=== PATIENT | female | born 1985 | race Caucasian/White ===

== ENCOUNTER 2022-10-03 13:11 | Emergency (ER) | payer OTHER, SELFPAY ==
[2022-10-03 13:28] VITALS: BP 120/68; PULSE 89; RESP 20; TEMP 37.2; O2SAT 100; BMI 19.3
--- NOTE | 2022-10-03 14:20 | CM.SWNOTE ---
[facility] [place] [facility] [place] [employer] [place] Start: 10/03/22 14:11 Freq: Status: Active Protocol: Document 10/03/22 14:11 TM (Rec: 10/03/22 14:20 TM [id number]) RADIOLOGIC TECHNOLOGIST CHIEF/Assembler Watch Train Assessment Time Spent with Patient Start date 10/03/22 Visit Start Time 13:40 End date 10/03/22 Visit End Time 14:11 Mental Health Screening Include Onset, Duration, Intensity Presenting Problem Pt presents with significant other who brought her in following suicidal statements made via text message. Precipitating Event(s) Pt is relatively unresponsive, and often staring off into space during interview. Per SO , pt has missed work for 1 week and has been in bed most of the time. Pt reports lack of appetite and is sleeping more than usual. Pt reports that she does not like Daniel and states, My kids are annoying and spoiled. I don't like theri father, I don 't want to be around him and he is there all the time. Current Behavioral Health Provider(s) Pt denies current BH treatment Include Facility, Provider, Ph. # /providers. Psych. Hx Mental Health and Chemical Pt was previously on Dependency antidepressent approximately 12 years ago during . Pt cannot remember how long she took medication or why she stopped. Pt cannot remember which medication she was prescribed. Pt denies substance use and SO corrorborates. Family Hx of Behavioral Abuse Pt reports that her aunts have mental illness diagnoses but denies family history of suicide. Pt endorses past history of trauma and became tearful when SW pressed. Pt did not go into detail regarding trauma reporting, It's been a long time. I'm over it. Psychiatric Hospitalizations (date(s)/ Pt denies. location) Psychosocial information & Support Pt's SO David is with her in Systems room. 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 Legal Concerns Legal Matters - Outstanding Issues Pt denies. Mental Status Orientation (Person/Place/Time) Pt is oriented to person, place, and time. Stated Mood I feel like shit. I just want to go to sleep. Affect (Congruent with Mood?) Broad. Thought Content - Specify/Describe denies AH or VH. Obsessions, Delusions, Hallucinations Thought Processes (Asdatlq-Gpfzaddd-Habx logical. Fnwhsqkh-Ncnazsbn-Mcevssdtpv- Sfqabyfjnijjhv-Dmrcmzv-Qgwxucvljbyk- Thought Blocking) Speech (Nywinq-Icrf-Lnwaagp-Rapid-Soft- slow, soft. Loud-Pressured) Motor (Cvvvai-Joesbjrkp-Nbvd-Other) slow. Insight (Ejrr-Potl-Rqjg/Limited) Poor - pt unable to articulate feelings, mood, or things that might improve current situation. Judgement (Ojbo-Ptph-Ynhz/Limited) Fair. Impulse Control (Adequate-Impaired) not tested. Memory (Inqvzyfnl-Pxctnm-Aenprv, intact. Impaired-Intact) Concentration (Intact-Impaired) impaired. Pt appears to space out during conversation and does not appear to be tracking appropriately. Attention (Intact-Impaired) impaired. Behavior (Appropriate-Inappropriate) appropriate. Risk Assessment Suicidal Ideation (Plan) No: Pt denies, although she is saying she just wants to stay in bed and sleep. Homicidal Ideation (Plan) No Intervention Intervention SW met with pt and her SO, David, per pt request. Pt did not readily participate in interview and often had to be prompted several times to answer question. Pt appears withdrawn and often staring into space. Pt tearful at times during interview. Pt not displaying great insight into current situation. Pt reports that she does not want voluntary hospitalization. SW discusses process for inpatient referral, outpatient , and intensive outpatient treatment. SW discusses process of DCR evaluation and potential involuntary detainment. SW discusses with ED provider, who agrees to meet with pt and SW to assess. Plan RA Plan ED Provider and SW will meet with patient to assess and decide how to move forward. CHICO Carreon
--- NOTE | 2022-10-03 15:47 | CM.SWNOTE ---
Addendum entered by CHICO Carreon 10/03/22 19:41: SW called [facility] and they confirmed that they received the fax and are currently reviewing the referral. They still have available beds. RICARDO called [facility] and left a voicemail requesting a call back to confirm that they received and are reviewing referral. RICARDO called [facility] and confirmed that they received the referral. They reported that they have been inundated with detox referrals but still have bed availability and will review and get back to SW as soon as possible. CHICO Carreon Addendum entered by CHICO Carreon 10/03/22 16:43: Pt asked to see RICARDO. RICARDO met pt and SO at bedside and pt tearfully stated that she would prefer to go voluntarily to [facility]. RICARDO explained that pt would not be able to have her cell phone at hospital and pt agreed. RICARDO will look for voluntary beds. RICARDO called [facility] and they do have beds available. SW will fax referral to [facility] once pt is medically cleared. SW called [facility] and screened pt. They do not believe that pt will meet acuity of their unit and are happy to provide IOP resources. RICARDO called [facility] and they have 1 lower acuity bed available. SW will fax referral once pt is medically cleared. RICARDO called [facility] and they have beds available. RICARDO will fax referral when pt is medically cleared. CHICO Carreon Original Note: ED SW Note Pt is 37 year old female who presents with SO for suicidal ideation. RICARDO asked pt's permission to talk with her mother who is in the waiting room and pt agreed. RICARDO met pt's mother, Deepika in [facility] to discuss pt's recent history. Deepika reports that pt has a lot of psychosocial stressors including a divorce and a relationship with a man that is also currently . Deepika reports that pt is caring for her kids but just barely. Deepika reports that pt has been withdrawn for the last few weeks and has not attended family events that she normally would attend. Per Deepika, pt has been sleeping and in catatonic state for weeks. Deepika reports that pt met with a family friend Mercy for dinner last Wednesday and made suicidal comments at that time. Pt has also made suicidal gestures/comments to her estranged , Rachael. Pt has told Rachael that he and her children would be fine without her. Pt has missed work the last week and generally stays in bed all day. When SW questions patient about suicidal statements she reports that she does not remember making them. Pt's erratic behavior includes quitting her second job last week. Per pt's mother, pt has become very thin and eats sporadically. Pt historically has very close relationship with her mother but has not been responding to her texts and refuses to see her today in hospital. SW and pt's SO David meet pt again in room and explain difference between voluntary and involuntary treatment. Pt continues to decline voluntary treatment. Plan: RICARDO discusses with ED provider, who agrees that DCR needs to evaluate. Once pt is medically clear, SW will call DCR for evaluation. CHICO Carreon
[2022-10-03 16:30] LABS: Add Manual Diff / Slide Review NO; Basophils Absolute Auto 0 /uL (0-100); Basophils Percent Auto 0.5 % (0-2); Eosinophils Absolute Auto 0 /uL (0-450); Eosinophils Percent Auto 0.5 % (2-4); Hematocrit 35.2 % (36-46); Hemoglobin 10.9 g/dL (12.0-16.0); Lymphocytes Absolute Auto 1300 /uL (1100-4500); Lymphocytes Percent Auto 22.6 % (25-40); Mean Corpuscular HGB Conc 30.8 % (30-36); Mean Corpuscular Hemoglobin 20.7 PG (26-34); Mean Corpuscular Volume 67.1 fL (80-100); Monocytes Absolute Auto 300 /uL (0-900); Monocytes Percent Auto 4.8 % (3-14); Neutrophils Absolute Auto 4300 /uL (1500-7000); Neutrophils Percent Auto 71.6 % (50-75); Platelet Count 379 X10^3/uL (150-400); Red Blood Cell Count 5.25 X10^6/uL (4.0-5.2); Red Cell Distribution Width 19.1 % (11.6-14.8)
[2022-10-03 16:32] LABS: Alanine Aminotransferase 12 IU/L (<35); Albumin 4.4 g/dL (3.5-5.0); Albumin Globulin Ratio 1.3 (1.0-2.8); Alkaline Phosphatase 54 U/L (38-126); Aspartate Aminotransferase 19 IU/L (14-36); BUN Creatinine Ratio 10.9 (6-22); Bilirubin Total 1.8 mg/dL (0.2-1.3); Blood Urea Nitrogen 10 mg/dL (7-17); Calcium 9.6 mg/dL (8.4-10.2); Carbon Dioxide 24 mmol/L (22-32); Chloride 102 mmol/L (98-107); Estimated Glomerular Filt Rate > 60 mL/min (>60); Ethanol (ETOH) < 10 mg/dL; Globulin 3.3 g/dL (1.7-4.1); Glucose 88 mg/dL (70-100); HEMOLYSIS < 15 (0-50); Potassium 4.2 mmol/L (3.4-5.1); Sodium 135 mmol/L (137-145); Total Protein 7.7 g/dL (6.3-8.2)
[2022-10-03] MEDS: ACETAMINOPHEN 325 MG TABLET 650 MG PO (16:36)
[2022-10-03 16:59] LABS: COVID19 -Nasal RAPID Negative (Negative)
[2022-10-03 17:02] LABS: Thyroid Stimulating Hormone 0.324 uIU/mL (0.47-4.68)
[2022-10-03 17:28] LABS: Hypochromasia 1+; Microcytosis 1+
[2022-10-03 17:29] LABS: Platelet Estimate Adequate on smear
[2022-10-03 17:50] LABS: UR Morphine/Opiate cutoff 300 Negative (Negative); Ur Creatinine Normal (Normal); Ur Specific Gravity Normal (Normal); Urine Amphetamines Negative (Negative); Urine Barbiturates Negative (Negative); Urine Benzodiazepines Negative (Negative); Urine Cocaine Negative (Negative); Urine MDMA Negative (Negative); Urine Methadone Negative (Negative); Urine Methamphetamines Negative (Negative); Urine Oxycodone Negative (Negative); Urine Phencyclidine Negative (Negative); Urine Tetrahydrocannabinol Positive (Negative); Urine Tricyclic Antidepressant Negative (Negative); Urine pH Normal (Normal)
[2022-10-03 17:51] LABS: Appearance Urine UA CLOUDY; Bilirubin Urine UA NEGATIVE (NEGATIVE); Color Urine UA YELLOW; Glucose Urine UA NEGATIVE (Negative); Ketones Urine UA 1+ (NEGATIVE); Leukocyte Esterase Urine UA 2+ (NEGATIVE); Nitrite Urine UA NEGATIVE (Negative); Occult Blood Urine UA 3+ (Negative); Pregnancy Test Urine Negative (Negative); Protein Urine UA 2+ (Negative); Specific Gravity Urine UA 1.025 (1.000-1.035); Urobilinogen Urine UA 0.2 E.U./dL (0.2)
[2022-10-03 18:20] LABS: Bacteria Urine Moderate (10-30); Culture Indicated Urine Specimen Cultured; RBC Urine 10-30/HPF (0-5/HPF); WBC Urine >100/HPF (0-5/HPF)
--- NOTE | 2022-10-03 18:33 | ED_ITS ---
HPI - Psych <Shanika Garcia DO - Last Filed: 10/06/22 08:06> General Chief Complaint: Psychiatric Symptoms Stated Complaint: SI Time Seen by Provider: 10/03/22 15:19 Source: patient Mode of arrival: Ambulatory History of Present Illness HPI Narrative: Patient is a 37-year-old healthy female who presents with suicidal ideations and depression. She is here with both boyfriend and mother. Patient says that she has been sleeping for number of weeks. She is no motivation to get up and out of bed. All she wants do a sleep. She has sent her boyfriend some text messages in regards to not waking up. She is no specific plan of suicidal thoughts. 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 The she has 3 children not able to care for them currently. She feels like she is supported by both her mother and her boyfriend. She really is not able to participate in daily living activities. Related Data Allergies Allergy/AdvReac Type Severity Reaction Status Date / Time No Known Drug Allergies Allergy Unknown Verified 10/03/22 13:28 [NO KNOWN DRUG ALLERGIES] Patient History <Shanika Garcia DO - Last Filed: 10/06/22 08:06> Social History Smoking Status: Never smoker Smoking Status: Never smoker Substance Use Type: does not use Exam <Shanika Garcia DO - Last Filed: 10/06/22 08:06> Initial Vital Signs Initial Vital Signs: Vital Signs Temperature 98.9 F 10/03/22 13:28 Pulse Rate 89 10/03/22 13:28 Respiratory Rate 20 10/03/22 13:28 Blood Pressure 120/68 10/03/22 13:28 Pulse Oximetry 100 10/03/22 13:28 Oxygen Delivery Method 10/03/22 13:28 GENERAL: Curled up in position staring off into space very tearful. She actually does have some makeup on. CARDIOVASCULAR: peripheral pulses in tact, cap refill <2 sec RESPIRATORY: No respiratory distress, speaks in full sentences without difficulty EXTREMITIES: Normal range of motion, no clubbing or edema. Neurovascularly intact NEUROLOGICAL: Cranial nerves II through XII grossly intact. Normal gait and speech. SKIN: Warm, dry, no petechiae, no rashes or lesions. <DO Shamika Manjarrez Last Filed: 10/04/22 06:18> Initial Vital Signs Initial Vital Signs: Vital Signs Temperature 98.9 F 10/03/22 13:28 Pulse Rate 89 10/03/22 13:28 Respiratory Rate 20 10/03/22 13:28 Blood Pressure 120/68 10/03/22 13:28 Pulse Oximetry 100 10/03/22 13:28 Oxygen Delivery Method 10/03/22 13:28 <Brian Olguin DO - Last Filed: 10/05/22 17:42> Initial Vital Signs Initial Vital Signs: Vital Signs Temperature 98.9 F 10/03/22 13:28 Pulse Rate 89 10/03/22 13:28 Respiratory Rate 20 10/03/22 13:28 Blood Pressure 120/68 10/03/22 13:28 Pulse Oximetry 100 10/03/22 13:28 Oxygen Delivery Method 10/03/22 13:28 Course <Shanika Garcia DO - Last Filed: 10/06/22 08:06> Orders Ordered: Discontinued Medications Acetaminophen (Acetaminophen 325 Mg Tablet) 650 mg PO NOW ONE Stop: 10/03/22 16:32 Last Admin: 10/03/22 16:36 Dose: 650 mg Documented By: MARIAM Cephalexin HCl (Cephalexin 250 Mg Capsule) 500 mg PO NOW ONE Stop: 10/04/22 18:15 Last Admin: 10/04/22 18:55 Dose: 500 mg Documented By: LIA Vital Signs Vital signs: Vital Signs - 8 hr 10/04/22 18:40 Pulse Rate 60 Blood Pressure 111/57 L Pulse Oximetry 100 Oxygen Delivery Method Room Air <Huan Shi DO - Last Filed: 10/04/22 06:18> Orders Ordered: Discontinued Medications Acetaminophen (Acetaminophen 325 Mg Tablet) 650 mg PO NOW ONE Stop: 10/03/22 16:32 Last Admin: 10/03/22 16:36 Dose: 650 mg Documented By: MARIAM Cephalexin HCl (Cephalexin 250 Mg Capsule) 500 mg PO NOW ONE Stop: 10/04/22 18:15 Last Admin: 10/04/22 18:55 Dose: 500 mg Documented By: ILA Vital Signs Vital signs: Vital Signs - 8 hr 10/04/22 18:40 Pulse Rate 60 Blood Pressure 111/57 L Pulse Oximetry 100 Oxygen Delivery Method Room Air <Brian Olguin DO - Last Filed: 10/05/22 17:42> Orders Ordered: Discontinued Medications Acetaminophen (Acetaminophen 325 Mg Tablet) 650 mg PO NOW ONE Stop: 10/03/22 16:32 Last Admin: 10/03/22 16:36 Dose: 650 mg Documented By: MARIAM Cephalexin HCl (Cephalexin 250 Mg Capsule) 500 mg PO NOW ONE Stop: 10/04/22 18:15 Last Admin: 10/04/22 18:55 Dose: 500 mg Documented By: LIA Vital Signs Vital signs: Vital Signs - 8 hr 10/04/22 18:40 Pulse Rate 60 Blood Pressure 111/57 L Pulse Oximetry 100 Oxygen Delivery Method Room Air MDM - Psych <Shanika Garcia DO - Last Filed: 10/06/22 08:06> Lab Data Result diagrams: 10/03/22 16:00 10/03/22 16:00 Labs: Lab Results 10/03/22 10/03/22 10/03/22 Range/Units 16:00 16:00 16:00 WBC 6.0 (4.5-11.0) X10^3/uL RBC 5.25 H (4.0-5.2) X10^6/uL Hgb 10.9 L (12.0-16.0) g/dL Hct 35.2 L (36-46) % MCV 67.1 L (80-100) fL MCH 20.7 L (26-34) PG MCHC 30.8 (30-36) % RDW 19.1 H (11.6-14.8) % Plt Count 379 (150-400) X10^3/uL Neut % (Auto) 71.6 (50-75) % Lymph % (Auto) 22.6 L (25-40) % [place] % (Auto) 4.8 (3-14) % Eos % (Auto) 0.5 L (2-4) % Baso % (Auto) 0.5 (0-2) % Neut # (Auto) 4300 (6124-5112) /uL Lymph # (Auto) 1300 (0182-1535) /uL [place] # (Auto) 300 (0-900) /uL Eos # (Auto) 0 (0-450) /uL Baso # (Auto) 0 (0-100) /uL Platelet Estimate Adequate on smear RBC Morphology See below Hypochromasia 1+ H Microcytosis 1+ H Sodium 135 L (137-145) mmol/L Potassium 4.2 (3.4-5.1) mmol/L Chloride 102 (98-107) mmol/L Carbon Dioxide 24 (22-32) mmol/L BUN 10 (7-17) mg/dL Creatinine 0.92 (0.52-1.04) mg/dL Estimated GFR > 60 (>60) mL/min BUN/Creatinine Ratio 10.9 (6-22) Glucose 88 (70-100) mg/dL Calcium 9.6 (8.4-10.2) mg/dL Magnesium (1.6-2.3) mg/dL Total Bilirubin 1.8 H (0.2-1.3) mg/dL AST 19 (14-36) IU/L ALT 12 (<35) IU/L Alkaline Phosphatase 54 (38-126) U/L Total Creatine Kinase (30-135) U/L CK-MB (CK-2) CK-MB (CK-2) Rel Index Total Protein 7.7 (6.3-8.2) g/dL Albumin 4.4 (3.5-5.0) g/dL Globulin 3.3 (1.7-4.1) g/dL Albumin/Globulin Ratio 1.3 (1.0-2.8) TSH 0.324 L (0.47-4.68) uIU/mL Urine Color Urine Appearance Urine pH (4.5-8.0) Ur Specific [place] (1.000-1.035) Urine Protein (Negative) Urine Glucose (UA) (Negative) g/dL Urine Ketones (NEGATIVE) Urine Occult Blood (Negative) Urine Nitrate (Negative) Urine Bilirubin (NEGATIVE) Urine Urobilinogen (0.2) E.U./dL Ur Leukocyte Esterase (NEGATIVE) Urine RBC (0-5/HPF) Urine WBC (0-5/HPF) Urine Bacteria (None) Ur Culture Indicated? Urine Test (Negative) U Opiates 300ng/mL cut (Negative) Ur Oxycodone Screen (Negative) Urine Methadone Screen (Negative) Ur Barbiturates Screen (Negative) U Tricyclic Antidepress (Negative) Ur Phencyclidine Scrn (Negative) Ur Amphetamines Screen (Negative) U Methamphetamines Scrn (Negative) Ur MDMA Scrn (Ecstasy) (Negative) U Benzodiazepines Scrn (Negative) Urine Cocaine Screen (Negative) U Marijuana (THC) Screen (Negative) Ethyl Alcohol < 10 ( - 10) mg/dL SARS-CoV-2 (PCR) (Negative) 10/03/22 10/03/22 10/03/22 Range/Units 16:10 17:35 17:35 WBC (4.5-11.0) X10^3/uL RBC (4.0-5.2) X10^6/uL Hgb (12.0-16.0) g/dL Hct (36-46) % MCV (80-100) fL MCH (26-34) PG MCHC (30-36) % RDW (11.6-14.8) % Plt Count (150-400) X10^3/uL Neut % (Auto) (50-75) % Lymph % (Auto) (25-40) % [place] % (Auto) (3-14) % Eos % (Auto) (2-4) % Baso % (Auto) (0-2) % Neut # (Auto) (9597-8264) /uL Lymph # (Auto) (4491-4256) /uL [place] # (Auto) (0-900) /uL Eos # (Auto) (0-450) /uL Baso # (Auto) (0-100) /uL Platelet Estimate RBC Morphology Hypochromasia Microcytosis Sodium (137-145) mmol/L Potassium (3.4-5.1) mmol/L Chloride (98-107) mmol/L Carbon Dioxide (22-32) mmol/L BUN (7-17) mg/dL Creatinine (0.52-1.04) mg/dL Estimated GFR (>60) mL/min BUN/Creatinine Ratio (6-22) Glucose (70-100) mg/dL Calcium (8.4-10.2) mg/dL Magnesium (1.6-2.3) mg/dL Total Bilirubin (0.2-1.3) mg/dL AST (14-36) IU/L ALT (<35) IU/L Alkaline Phosphatase (38-126) U/L Total Creatine Kinase (30-135) U/L CK-MB (CK-2) CK-MB (CK-2) Rel Index Total Protein (6.3-8.2) g/dL Albumin (3.5-5.0) g/dL Globulin (1.7-4.1) g/dL Albumin/Globulin Ratio (1.0-2.8) TSH (0.47-4.68) uIU/mL Urine Color Yellow Urine Appearance Cloudy Urine pH 5.0 (4.5-8.0) Ur Specific [place] 1.025 (1.000-1.035) Urine Protein 2+ H (Negative) Urine Glucose (UA) Negative (Negative) g/dL Urine Ketones 1+ H (NEGATIVE) Urine Occult Blood 3+ H (Negative) Urine Nitrate Negative (Negative) Urine Bilirubin Negative (NEGATIVE) Urine Urobilinogen 0.2 (0.2) E.U./dL Ur Leukocyte Esterase 2+ H (NEGATIVE) Urine RBC 10-30/hpf H (0-5/HPF) Urine WBC >100/hpf H (0-5/HPF) Urine Bacteria Moderate (10-30) H (None) Ur Culture Indicated? Specimen cultured Urine Test (Negative) U Opiates 300ng/mL cut Negative (Negative) Ur Oxycodone Screen Negative (Negative) Urine Methadone Screen Negative (Negative) Ur Barbiturates Screen Negative (Negative) U Tricyclic Antidepress Negative (Negative) Ur Phencyclidine Scrn Negative (Negative) Ur Amphetamines Screen Negative (Negative) U Methamphetamines Scrn Negative (Negative) Ur MDMA Scrn (Ecstasy) Negative (Negative) U Benzodiazepines Scrn Negative (Negative) Urine Cocaine Screen Negative (Negative) U Marijuana (THC) Screen Positive H (Negative) Ethyl Alcohol ( - 10) mg/dL SARS-CoV-2 (PCR) Negative (Negative) 10/03/22 10/04/22 Range/Units 17:35 14:47 WBC (4.5-11.0) X10^3/uL RBC (4.0-5.2) X10^6/uL Hgb (12.0-16.0) g/dL Hct (36-46) % MCV (80-100) fL MCH (26-34) PG MCHC (30-36) % RDW (11.6-14.8) % Plt Count (150-400) X10^3/uL Neut % (Auto) (50-75) % Lymph % (Auto) (25-40) % [place] % (Auto) (3-14) % Eos % (Auto) (2-4) % Baso % (Auto) (0-2) % Neut # (Auto) (6872-6707) /uL Lymph # (Auto) (2941-5055) /uL [place] # (Auto) (0-900) /uL Eos # (Auto) (0-450) /uL Baso # (Auto) (0-100) /uL Platelet Estimate RBC Morphology Hypochromasia Microcytosis Sodium (137-145) mmol/L Potassium (3.4-5.1) mmol/L Chloride (98-107) mmol/L Carbon Dioxide (22-32) mmol/L BUN (7-17) mg/dL Creatinine (0.52-1.04) mg/dL Estimated GFR (>60) mL/min BUN/Creatinine Ratio (6-22) Glucose (70-100) mg/dL Calcium (8.4-10.2) mg/dL Magnesium 2.2 (1.6-2.3) mg/dL Total Bilirubin (0.2-1.3) mg/dL AST (14-36) IU/L ALT (<35) IU/L Alkaline Phosphatase (38-126) U/L Total Creatine Kinase 37 (30-135) U/L CK-MB (CK-2) TNP CK-MB (CK-2) Rel Index TNP Total Protein (6.3-8.2) g/dL Albumin (3.5-5.0) g/dL Globulin (1.7-4.1) g/dL Albumin/Globulin Ratio (1.0-2.8) TSH (0.47-4.68) uIU/mL Urine Color Urine Appearance Urine pH (4.5-8.0) Ur Specific [place] (1.000-1.035) Urine Protein (Negative) Urine Glucose (UA) (Negative) g/dL Urine Ketones (NEGATIVE) Urine Occult Blood (Negative) Urine Nitrate (Negative) Urine Bilirubin (NEGATIVE) Urine Urobilinogen (0.2) E.U./dL Ur Leukocyte Esterase (NEGATIVE) Urine RBC (0-5/HPF) Urine WBC (0-5/HPF) Urine Bacteria (None) Ur Culture Indicated? Urine Test Negative (Negative) U Opiates 300ng/mL cut (Negative) Ur Oxycodone Screen (Negative) Urine Methadone Screen (Negative) Ur Barbiturates Screen (Negative) U Tricyclic Antidepress (Negative) Ur Phencyclidine Scrn (Negative) Ur Amphetamines Screen (Negative) U Methamphetamines Scrn (Negative) Ur MDMA Scrn (Ecstasy) (Negative) U Benzodiazepines Scrn (Negative) Urine Cocaine Screen (Negative) U Marijuana (THC) Screen (Negative) Ethyl Alcohol ( - 10) mg/dL SARS-CoV-2 (PCR) (Negative) MDM Narrative Medical decision making narrative: Patient 37-year-old female with severe depression. Causing grave disability. Unable to participate in daily living activities. Boyfriend and mom are good support she wants boyfriend at bedside at all times. <Huan Shi, DO - Last Filed: 10/04/22 06:18> Lab Data Labs: Lab Results 10/03/22 10/03/22 10/03/22 Range/Units 16:00 16:00 16:00 WBC 6.0 (4.5-11.0) X10^3/uL RBC 5.25 H (4.0-5.2) X10^6/uL Hgb 10.9 L (12.0-16.0) g/dL Hct 35.2 L (36-46) % MCV 67.1 L (80-100) fL MCH 20.7 L (26-34) PG MCHC 30.8 (30-36) % RDW 19.1 H (11.6-14.8) % Plt Count 379 (150-400) X10^3/uL Neut % (Auto) 71.6 (50-75) % Lymph % (Auto) 22.6 L (25-40) % [place] % (Auto) 4.8 (3-14) % Eos % (Auto) 0.5 L (2-4) % Baso % (Auto) 0.5 (0-2) % Neut # (Auto) 4300 (6519-7091) /uL Lymph # (Auto) 1300 (8780-2917) /uL [place] # (Auto) 300 (0-900) /uL Eos # (Auto) 0 (0-450) /uL Baso # (Auto) 0 (0-100) /uL Platelet Estimate Adequate on smear RBC Morphology See below Hypochromasia 1+ H Microcytosis 1+ H Sodium 135 L (137-145) mmol/L Potassium 4.2 (3.4-5.1) mmol/L Chloride 102 (98-107) mmol/L Carbon Dioxide 24 (22-32) mmol/L BUN 10 (7-17) mg/dL Creatinine 0.92 (0.52-1.04) mg/dL Estimated GFR > 60 (>60) mL/min BUN/Creatinine Ratio 10.9 (6-22) Glucose 88 (70-100) mg/dL Calcium 9.6 (8.4-10.2) mg/dL Magnesium (1.6-2.3) mg/dL Total Bilirubin 1.8 H (0.2-1.3) mg/dL AST 19 (14-36) IU/L ALT 12 (<35) IU/L Alkaline Phosphatase 54 (38-126) U/L Total Creatine Kinase (30-135) U/L CK-MB (CK-2) CK-MB (CK-2) Rel Index Total Protein 7.7 (6.3-8.2) g/dL Albumin 4.4 (3.5-5.0) g/dL Globulin 3.3 (1.7-4.1) g/dL Albumin/Globulin Ratio 1.3 (1.0-2.8) TSH 0.324 L (0.47-4.68) uIU/mL Urine Color Urine Appearance Urine pH (4.5-8.0) Ur Specific [place] (1.000-1.035) Urine Protein (Negative) Urine Glucose (UA) (Negative) g/dL Urine Ketones (NEGATIVE) Urine Occult Blood (Negative) Urine Nitrate (Negative) Urine Bilirubin (NEGATIVE) Urine Urobilinogen (0.2) E.U./dL Ur Leukocyte Esterase (NEGATIVE) Urine RBC (0-5/HPF) Urine WBC (0-5/HPF) Urine Bacteria (None) Ur Culture Indicated? Urine Test (Negative) U Opiates 300ng/mL cut (Negative) Ur Oxycodone Screen (Negative) Urine Methadone Screen (Negative) Ur Barbiturates Screen (Negative) U Tricyclic Antidepress (Negative) Ur Phencyclidine Scrn (Negative) Ur Amphetamines Screen (Negative) U Methamphetamines Scrn (Negative) Ur MDMA Scrn (Ecstasy) (Negative) U Benzodiazepines Scrn (Negative) Urine Cocaine Screen (Negative) U Marijuana (THC) Screen (Negative) Ethyl Alcohol < 10 ( - 10) mg/dL SARS-CoV-2 (PCR) (Negative) 10/03/22 10/03/22 10/03/22 Range/Units 16:10 17:35 17:35 WBC (4.5-11.0) X10^3/uL RBC (4.0-5.2) X10^6/uL Hgb (12.0-16.0) g/dL Hct (36-46) % MCV (80-100) fL MCH (26-34) PG MCHC (30-36) % RDW (11.6-14.8) % Plt Count (150-400) X10^3/uL Neut % (Auto) (50-75) % Lymph % (Auto) (25-40) % [place] % (Auto) (3-14) % Eos % (Auto) (2-4) % Baso % (Auto) (0-2) % Neut # (Auto) (2069-5451) /uL Lymph # (Auto) (1215-1231) /uL [place] # (Auto) (0-900) /uL Eos # (Auto) (0-450) /uL Baso # (Auto) (0-100) /uL Platelet Estimate RBC Morphology Hypochromasia Microcytosis Sodium (137-145) mmol/L Potassium (3.4-5.1) mmol/L Chloride (98-107) mmol/L Carbon Dioxide (22-32) mmol/L BUN (7-17) mg/dL Creatinine (0.52-1.04) mg/dL Estimated GFR (>60) mL/min BUN/Creatinine Ratio (6-22) Glucose (70-100) mg/dL Calcium (8.4-10.2) mg/dL Magnesium (1.6-2.3) mg/dL Total Bilirubin (0.2-1.3) mg/dL AST (14-36) IU/L ALT (<35) IU/L Alkaline Phosphatase (38-126) U/L Total Creatine Kinase (30-135) U/L CK-MB (CK-2) CK-MB (CK-2) Rel Index Total Protein (6.3-8.2) g/dL Albumin (3.5-5.0) g/dL Globulin (1.7-4.1) g/dL Albumin/Globulin Ratio (1.0-2.8) TSH (0.47-4.68) uIU/mL Urine Color Yellow Urine Appearance Cloudy Urine pH 5.0 (4.5-8.0) Ur Specific [place] 1.025 (1.000-1.035) Urine Protein 2+ H (Negative) Urine Glucose (UA) Negative (Negative) g/dL Urine Ketones 1+ H (NEGATIVE) Urine Occult Blood 3+ H (Negative) Urine Nitrate Negative (Negative) Urine Bilirubin Negative (NEGATIVE) Urine Urobilinogen 0.2 (0.2) E.U./dL Ur Leukocyte Esterase 2+ H (NEGATIVE) Urine RBC 10-30/hpf H (0-5/HPF) Urine WBC >100/hpf H (0-5/HPF) Urine Bacteria Moderate (10-30) H (None) Ur Culture Indicated? Specimen cultured Urine Test (Negative) U Opiates 300ng/mL cut Negative (Negative) Ur Oxycodone Screen Negative (Negative) Urine Methadone Screen Negative (Negative) Ur Barbiturates Screen Negative (Negative) U Tricyclic Antidepress Negative (Negative) Ur Phencyclidine Scrn Negative (Negative) Ur Amphetamines Screen Negative (Negative) U Methamphetamines Scrn Negative (Negative) Ur MDMA Scrn (Ecstasy) Negative (Negative) U Benzodiazepines Scrn Negative (Negative) Urine Cocaine Screen Negative (Negative) U Marijuana (THC) Screen Positive H (Negative) Ethyl Alcohol ( - 10) mg/dL SARS-CoV-2 (PCR) Negative (Negative) 10/03/22 10/04/22 Range/Units 17:35 14:47 WBC (4.5-11.0) X10^3/uL RBC (4.0-5.2) X10^6/uL Hgb (12.0-16.0) g/dL Hct (36-46) % MCV (80-100) fL MCH (26-34) PG MCHC (30-36) % RDW (11.6-14.8) % Plt Count (150-400) X10^3/uL Neut % (Auto) (50-75) % Lymph % (Auto) (25-40) % [place] % (Auto) (3-14) % Eos % (Auto) (2-4) % Baso % (Auto) (0-2) % Neut # (Auto) (2131-9431) /uL Lymph # (Auto) (1416-1440) /uL [place] # (Auto) (0-900) /uL Eos # (Auto) (0-450) /uL Baso # (Auto) (0-100) /uL Platelet Estimate RBC Morphology Hypochromasia Microcytosis Sodium (137-145) mmol/L Potassium (3.4-5.1) mmol/L Chloride (98-107) mmol/L Carbon Dioxide (22-32) mmol/L BUN (7-17) mg/dL Creatinine (0.52-1.04) mg/dL Estimated GFR (>60) mL/min BUN/Creatinine Ratio (6-22) Glucose (70-100) mg/dL Calcium (8.4-10.2) mg/dL Magnesium 2.2 (1.6-2.3) mg/dL Total Bilirubin (0.2-1.3) mg/dL AST (14-36) IU/L ALT (<35) IU/L Alkaline Phosphatase (38-126) U/L Total Creatine Kinase 37 (30-135) U/L CK-MB (CK-2) TNP CK-MB (CK-2) Rel Index TNP Total Protein (6.3-8.2) g/dL Albumin (3.5-5.0) g/dL Globulin (1.7-4.1) g/dL Albumin/Globulin Ratio (1.0-2.8) TSH (0.47-4.68) uIU/mL Urine Color Urine Appearance Urine pH (4.5-8.0) Ur Specific [place] (1.000-1.035) Urine Protein (Negative) Urine Glucose (UA) (Negative) g/dL Urine Ketones (NEGATIVE) Urine Occult Blood (Negative) Urine Nitrate (Negative) Urine Bilirubin (NEGATIVE) Urine Urobilinogen (0.2) E.U./dL Ur Leukocyte Esterase (NEGATIVE) Urine RBC (0-5/HPF) Urine WBC (0-5/HPF) Urine Bacteria (None) Ur Culture Indicated? Urine Test Negative (Negative) U Opiates 300ng/mL cut (Negative) Ur Oxycodone Screen (Negative) Urine Methadone Screen (Negative) Ur Barbiturates Screen (Negative) U Tricyclic Antidepress (Negative) Ur Phencyclidine Scrn (Negative) Ur Amphetamines Screen (Negative) U Methamphetamines Scrn (Negative) Ur MDMA Scrn (Ecstasy) (Negative) U Benzodiazepines Scrn (Negative) Urine Cocaine Screen (Negative) U Marijuana (THC) Screen (Negative) Ethyl Alcohol ( - 10) mg/dL SARS-CoV-2 (PCR) (Negative) MDM Narrative Medical decision making narrative: Patient 37-year-old female with severe depression. Causing grave disability. Unable to participate in daily living activities. Boyfriend and mom are good support she wants boyfriend at bedside at all times. Dr shi overnight 10/03-10/04: Received turned over. Patient is medically clear. Has been stable overnight with family at bedside. She remains voluntary. Patient was accepted to [facility] however she declined to go to this facility with those reported to be because of their visiting policy. Information has been sent to other facilities for their evaluation. Care turned over to day provider to continue to observe until disposition. <Brian Olguin, DO - Last Filed: 10/05/22 17:42> Lab Data Labs: Lab Results 10/03/22 10/03/22 10/03/22 Range/Units 16:00 16:00 16:00 WBC 6.0 (4.5-11.0) X10^3/uL RBC 5.25 H (4.0-5.2) X10^6/uL Hgb 10.9 L (12.0-16.0) g/dL Hct 35.2 L (36-46) % MCV 67.1 L (80-100) fL MCH 20.7 L (26-34) PG MCHC 30.8 (30-36) % RDW 19.1 H (11.6-14.8) % Plt Count 379 (150-400) X10^3/uL Neut % (Auto) 71.6 (50-75) % Lymph % (Auto) 22.6 L (25-40) % [place] % (Auto) 4.8 (3-14) % Eos % (Auto) 0.5 L (2-4) % Baso % (Auto) 0.5 (0-2) % Neut # (Auto) 4300 (2031-2031) /uL Lymph # (Auto) 1300 (6238-5406) /uL [place] # (Auto) 300 (0-900) /uL Eos # (Auto) 0 (0-450) /uL Baso # (Auto) 0 (0-100) /uL Platelet Estimate Adequate on smear RBC Morphology See below Hypochromasia 1+ H Microcytosis 1+ H Sodium 135 L (137-145) mmol/L Potassium 4.2 (3.4-5.1) mmol/L Chloride 102 (98-107) mmol/L Carbon Dioxide 24 (22-32) mmol/L BUN 10 (7-17) mg/dL Creatinine 0.92 (0.52-1.04) mg/dL Estimated GFR > 60 (>60) mL/min BUN/Creatinine Ratio 10.9 (6-22) Glucose 88 (70-100) mg/dL Calcium 9.6 (8.4-10.2) mg/dL Magnesium (1.6-2.3) mg/dL Total Bilirubin 1.8 H (0.2-1.3) mg/dL AST 19 (14-36) IU/L ALT 12 (<35) IU/L Alkaline Phosphatase 54 (38-126) U/L Total Creatine Kinase (30-135) U/L CK-MB (CK-2) CK-MB (CK-2) Rel Index Total Protein 7.7 (6.3-8.2) g/dL Albumin 4.4 (3.5-5.0) g/dL Globulin 3.3 (1.7-4.1) g/dL Albumin/Globulin Ratio 1.3 (1.0-2.8) TSH 0.324 L (0.47-4.68) uIU/mL Urine Color Urine Appearance Urine pH (4.5-8.0) Ur Specific [place] (1.000-1.035) Urine Protein (Negative) Urine Glucose (UA) (Negative) g/dL Urine Ketones (NEGATIVE) Urine Occult Blood (Negative) Urine Nitrate (Negative) Urine Bilirubin (NEGATIVE) Urine Urobilinogen (0.2) E.U./dL Ur Leukocyte Esterase (NEGATIVE) Urine RBC (0-5/HPF) Urine WBC (0-5/HPF) Urine Bacteria (None) Ur Culture Indicated? Urine Test (Negative) U Opiates 300ng/mL cut (Negative) Ur Oxycodone Screen (Negative) Urine Methadone Screen (Negative) Ur Barbiturates Screen (Negative) U Tricyclic Antidepress (Negative) Ur Phencyclidine Scrn (Negative) Ur Amphetamines Screen (Negative) U Methamphetamines Scrn (Negative) Ur MDMA Scrn (Ecstasy) (Negative) U Benzodiazepines Scrn (Negative) Urine Cocaine Screen (Negative) U Marijuana (THC) Screen (Negative) Ethyl Alcohol < 10 ( - 10) mg/dL SARS-CoV-2 (PCR) (Negative) 10/03/22 10/03/22 10/03/22 Range/Units 16:10 17:35 17:35 WBC (4.5-11.0) X10^3/uL RBC (4.0-5.2) X10^6/uL Hgb (12.0-16.0) g/dL Hct (36-46) % MCV (80-100) fL MCH (26-34) PG MCHC (30-36) % RDW (11.6-14.8) % Plt Count (150-400) X10^3/uL Neut % (Auto) (50-75) % Lymph % (Auto) (25-40) % [place] % (Auto) (3-14) % Eos % (Auto) (2-4) % Baso % (Auto) (0-2) % Neut # (Auto) (4610-4798) /uL Lymph # (Auto) (6448-9152) /uL [place] # (Auto) (0-900) /uL Eos # (Auto) (0-450) /uL Baso # (Auto) (0-100) /uL Platelet Estimate RBC Morphology Hypochromasia Microcytosis Sodium (137-145) mmol/L Potassium (3.4-5.1) mmol/L Chloride (98-107) mmol/L Carbon Dioxide (22-32) mmol/L BUN (7-17) mg/dL Creatinine (0.52-1.04) mg/dL Estimated GFR (>60) mL/min BUN/Creatinine Ratio (6-22) Glucose (70-100) mg/dL Calcium (8.4-10.2) mg/dL Magnesium (1.6-2.3) mg/dL Total Bilirubin (0.2-1.3) mg/dL AST (14-36) IU/L ALT (<35) IU/L Alkaline Phosphatase (38-126) U/L Total Creatine Kinase (30-135) U/L CK-MB (CK-2) CK-MB (CK-2) Rel Index Total Protein (6.3-8.2) g/dL Albumin (3.5-5.0) g/dL Globulin (1.7-4.1) g/dL Albumin/Globulin Ratio (1.0-2.8) TSH (0.47-4.68) uIU/mL Urine Color Yellow Urine Appearance Cloudy Urine pH 5.0 (4.5-8.0) Ur Specific [place] 1.025 (1.000-1.035) Urine Protein 2+ H (Negative) Urine Glucose (UA) Negative (Negative) g/dL Urine Ketones 1+ H (NEGATIVE) Urine Occult Blood 3+ H (Negative) Urine Nitrate Negative (Negative) Urine Bilirubin Negative (NEGATIVE) Urine Urobilinogen 0.2 (0.2) E.U./dL Ur Leukocyte Esterase 2+ H (NEGATIVE) Urine RBC 10-30/hpf H (0-5/HPF) Urine WBC >100/hpf H (0-5/HPF) Urine Bacteria Moderate (10-30) H (None) Ur Culture Indicated? Specimen cultured Urine Test (Negative) U Opiates 300ng/mL cut Negative (Negative) Ur Oxycodone Screen Negative (Negative) Urine Methadone Screen Negative (Negative) Ur Barbiturates Screen Negative (Negative) U Tricyclic Antidepress Negative (Negative) Ur Phencyclidine Scrn Negative (Negative) Ur Amphetamines Screen Negative (Negative) U Methamphetamines Scrn Negative (Negative) Ur MDMA Scrn (Ecstasy) Negative (Negative) U Benzodiazepines Scrn Negative (Negative) Urine Cocaine Screen Negative (Negative) U Marijuana (THC) Screen Positive H (Negative) Ethyl Alcohol ( - 10) mg/dL SARS-CoV-2 (PCR) Negative (Negative) 10/03/22 10/04/22 Range/Units 17:35 14:47 WBC (4.5-11.0) X10^3/uL RBC (4.0-5.2) X10^6/uL Hgb (12.0-16.0) g/dL Hct (36-46) % MCV (80-100) fL MCH (26-34) PG MCHC (30-36) % RDW (11.6-14.8) % Plt Count (150-400) X10^3/uL Neut % (Auto) (50-75) % Lymph % (Auto) (25-40) % [place] % (Auto) (3-14) % Eos % (Auto) (2-4) % Baso % (Auto) (0-2) % Neut # (Auto) (0700-5155) /uL Lymph # (Auto) (9375-8496) /uL [place] # (Auto) (0-900) /uL Eos # (Auto) (0-450) /uL Baso # (Auto) (0-100) /uL Platelet Estimate RBC Morphology Hypochromasia Microcytosis Sodium (137-145) mmol/L Potassium (3.4-5.1) mmol/L Chloride (98-107) mmol/L Carbon Dioxide (22-32) mmol/L BUN (7-17) mg/dL Creatinine (0.52-1.04) mg/dL Estimated GFR (>60) mL/min BUN/Creatinine Ratio (6-22) Glucose (70-100) mg/dL Calcium (8.4-10.2) mg/dL Magnesium 2.2 (1.6-2.3) mg/dL Total Bilirubin (0.2-1.3) mg/dL AST (14-36) IU/L ALT (<35) IU/L Alkaline Phosphatase (38-126) U/L Total Creatine Kinase 37 (30-135) U/L CK-MB (CK-2) TNP CK-MB (CK-2) Rel Index TNP Total Protein (6.3-8.2) g/dL Albumin (3.5-5.0) g/dL Globulin (1.7-4.1) g/dL Albumin/Globulin Ratio (1.0-2.8) TSH (0.47-4.68) uIU/mL Urine Color Urine Appearance Urine pH (4.5-8.0) Ur Specific [place] (1.000-1.035) Urine Protein (Negative) Urine Glucose (UA) (Negative) g/dL Urine Ketones (NEGATIVE) Urine Occult Blood (Negative) Urine Nitrate (Negative) Urine Bilirubin (NEGATIVE) Urine Urobilinogen (0.2) E.U./dL Ur Leukocyte Esterase (NEGATIVE) Urine RBC (0-5/HPF) Urine WBC (0-5/HPF) Urine Bacteria (None) Ur Culture Indicated? Urine Test Negative (Negative) U Opiates 300ng/mL cut (Negative) Ur Oxycodone Screen (Negative) Urine Methadone Screen (Negative) Ur Barbiturates Screen (Negative) U Tricyclic Antidepress (Negative) Ur Phencyclidine Scrn (Negative) Ur Amphetamines Screen (Negative) U Methamphetamines Scrn (Negative) Ur MDMA Scrn (Ecstasy) (Negative) U Benzodiazepines Scrn (Negative) Urine Cocaine Screen (Negative) U Marijuana (THC) Screen (Negative) Ethyl Alcohol ( - 10) mg/dL SARS-CoV-2 (PCR) (Negative) MDM Narrative Medical decision making narrative: Patient 37-year-old female with severe depression. Causing grave disability. Unable to participate in daily living activities. Boyfriend and mom are good support she wants boyfriend at bedside at all times. Dr shi overnight 10/03-10/04: Received turned over. Patient is medically clear. Has been stable overnight with family at bedside. She remains voluntary. Patient was accepted to [facility] however she declined to go to this facility with those reported to be because of their visiting policy. Information has been sent to other facilities for their evaluation. Care turned over to day provider to continue to observe until disposition. [1945] (Sharif) Patient received in sign out from [Radha]. I have reviewed the clinical course and performed an independent history and physical exam. She is resting comfortably, we continue to work on bed placement. Please see TECHNICAL INSPECTOR note for details Patient has been accepted at [facility], EMS to arrive at 7:30 a.m.. <Brian Olguin, DO - Last Filed: 10/05/22 17:42> Critical Care Time Critical Care Time: Yes Total Critical Care Time: 30 Attestation: The high probability of a clinically significant, sudden or life threatening deterioration of the [Psych/CV/] system(s) required my full and direct attention, intervention and personal management. The aggregate critical care time was [30] minutes. This time is in addition to time spent performing reported procedures but includes the following: [x] Data Review and interpretation [x] Patient assessment and monitoring of vital signs [x] Documentation [x] Medication orders and management Discharge Plan Departure Patient Disposition: Xfer [facility]iatric [facility] Clinical Impression: Suicidal ideations, Depression Referrals: Miscellaneous,Doctor, MD [Primary Care Provider] -
--- NOTE | 2022-10-03 20:00 | PC.NURSE ---
Pt calmly talking with family laying in bed
--- NOTE | 2022-10-03 20:15 | PC.NURSE ---
Pt talking with family
--- NOTE | 2022-10-03 20:17 | PC.NURSE ---
[facility] will call back if accepted. They may possibly have a bed tomorrow
--- NOTE | 2022-10-03 20:30 | PC.NURSE ---
Pt calm, laughing with family
--- NOTE | 2022-10-03 21:02 | PC.NURSE ---
gave patient a cup with ice chips. Patient laying in bed, has one visitor in the room with her.
--- NOTE | 2022-10-03 21:15 | PC.NURSE ---
gave patient warm blankets
--- NOTE | 2022-10-03 21:32 | PC.NURSE ---
patient's family (3 children) are visiting her. Family is laughing together and acting appropriately.
--- NOTE | 2022-10-03 21:47 | PC.NURSE ---
patient saying des to her children visiting, patient tearful.
--- NOTE | 2022-10-03 22:01 | PC.NURSE ---
patient laying in bed with visitor next to her
[2022-10-03 23:00] VITALS: BP 121/61; PULSE 80; RESP 18; O2SAT 98
--- NOTE | 2022-10-04 01:41 | PC.NURSE ---
PT is apprehensive about going to [facility] because of distance and visitor policy, Pts mother had called [facility] to discuss rules of facility. Mother was not happy with visitation policy and stated so to Pt. which pt resonded to not wanting to go to that facility from fear of being alone. This VENEER SORTER discussed Options with Pt and Family separately stating that turning down the accepting facility could increase the duration of time spent here in the ED. Family is currently discussing if Pt should reconsider going to accepting facility. This VENEER SORTER awaiting decision to keep current Transport and Facility spot on schedule
--- NOTE | 2022-10-04 03:10 | PC.NURSE ---
Pt accepted at [facility]. [place] Pt would [place] wait for a bed at [facility]
--- NOTE | 2022-10-04 04:27 | PC.NURSE ---
[facility] reviewed Pt chart. Intake states its not a good fit for our program due to lack of motivation for Tx
[2022-10-04 06:06] VITALS: BP 100/55; PULSE 58; O2SAT 100
--- NOTE | 2022-10-04 08:35 | PC.NURSE ---
sitter outside of room, significant other in room
--- NOTE | 2022-10-04 13:36 | CM.SWNOTE ---
Addendum entered by Katie Landeros 10/04/22 14:30: WARRANTY CLERK Note WARRANTY CLERK is able to reach [facility], it is reported they can review patient, WARRANTY CLERK faxes clinicals for review. RICHY Meadows Addendum entered by Katie Landeros 10/04/22 14:02: WARRANTY CLERK Note WARRANTY CLERK calls [facility] and left VM requesting return call. WARRANTY CLERK calls [facility], it is reported that they are at capacity. WARRANTY CLERK calls [facility] it is reported that they only have 1 adult male bed and there are no known female discharges until Thursday. WARRANTY CLERK calls [facility], it is reported that they are full. WARRANTY CLERK calls [facility], it is reported they are full throughout the weekend. WARRANTY CLERK calls [facility], there is no answer. To review: [facility] declined, [facility] Declined and [facility] accepted but patient declined due to distance and lack of visitation. WARRANTY CLERK meets with patient's mother Kalia and Brother Hong in waiting area per request from patient and patient's spouse. WARRANTY CLERK provides updated information regarding search for inpatient bed. Mother- Kalia (Ph. # [phone]) Brother- Hong (Ph. # [phone]) Per family, it is reported that they are continued support to patient, and patient is agreeable to outpatient services upon appropriate d/c. Plan: WARRANTY CLERK continue to seek voluntary inpatient bed for patient. RICHY Meadows Original Note: WARRANTY CLERK Note WARRANTY CLERK enters room to meet with patient, present with s/o. Patient and spouse endorse patient preference for voluntary inpatient tx. Patient endorses I feel like shit every day. WARRANTY CLERK discusses alternative options to inpatient and spouse and patient endorse preference for voluntary inpatient tx. It is reported that patient preference and family preference is for patient to be somewhat close by and for patient to be able to have some sort of visitation. Patient presents as withdrawn, flat affect but agreeable to tx. Patient denies current SI. WARRANTY CLERK calls [facility], it is reported they have no beds today. WARRANTY CLERK calls [facility] inpatient unit and it is reported that they have beds and can review patient, WARRANTY CLERK faxes clinicals for review. Plan: WARRANTY CLERK to continue to seek voluntary inpatient bed for patient. QUENTIN MeadowsSW
--- NOTE | 2022-10-04 13:47 | PC.NURSE ---
Pt and significant other laughing and talking in rm.
[2022-10-04 15:07] LABS: Creatine Kinase 37 U/L (30-135); Magnesium 2.2 mg/dL (1.6-2.3)
--- NOTE | 2022-10-04 15:35 | PC.NURSE ---
Addendum entered by Annabelle Corral R.N. 10/04/22 15:38: She is open to seeking BH tx and seeing a therapist. Original Note: SO at the bedside for most of the morning/afternoon. Pt is pleasant, talkative and laughs occasionally. Pt affirms vague thoughts of self harm. Denies SI/HI. She is open to seeking BH tx and
[2022-10-04 18:40] VITALS: BP 111/57; PULSE 60; O2SAT 100
[2022-10-04] MEDS: cephALEXin 250 MG CAPSULE 500 MG PO (18:55)
--- NOTE | 2022-10-04 19:54 | CM.SWNOTE ---
ANTHROPOLOGY DEPARTMENT CHAIR Note [facility] Intake - [facility] requests EKG, Magnesium, CK and TSH levels. ANTHROPOLOGY DEPARTMENT CHAIR requests charge account authorizer order these. ANTHROPOLOGY DEPARTMENT CHAIR faxes results and calls intake. [facility] later reports that someone in their ED needs the female bed and they can no longer accept patient. [facility] reports that there may be availability tomorrow AM and that the accepting provider agrees that patient would benefit from treatment. ANTHROPOLOGY DEPARTMENT CHAIR calls [facility] and requests if they could reconsider patient as she is voluntary and seeking treatment. [facility] intake states that they will continue to decline due to patient's consistent hx of not being voluntary during ED encounter. ANTHROPOLOGY DEPARTMENT CHAIR asks patient if she would re-consider [facility], patient shakes head No. ANTHROPOLOGY DEPARTMENT CHAIR informs patient and family members in room regarding this information and endorses that it is unlikely that patient will find placement today. ANTHROPOLOGY DEPARTMENT CHAIR discusses option of IOP through [facility] or [facility] as plan B, patient or family does not provide response. ANTHROPOLOGY DEPARTMENT CHAIR calls [facility] at 1930 and it is reported that they may have a female voluntary bed, ANTHROPOLOGY DEPARTMENT CHAIR asks intake to review patient and requests return call. ANTHROPOLOGY DEPARTMENT CHAIR informs ED team to f/u with [facility] this evening and call in the AM if patient does not have placement. ANTHROPOLOGY DEPARTMENT CHAIR also request that ED team calls [facility] tomorrow morning. Plan: Continue to seek voluntary inpatient bed for patient (f/u with [facility], [facility], and [facility]). Katie Landeros, CUST[employer] MILL OPERATOR HELPER
--- NOTE | 2022-10-04 19:56 | PC.NURSE ---
Was brought by family @[id number]
--- NOTE | 2022-10-04 21:12 | PC.NURSE ---
[id number] Called [facility] spoke with [facility] in intake she is looking at Female bed availibility and will call back shaheed
[2022-10-05 06:34] VITALS: BP 95/54; PULSE 69; O2SAT 98
[2022-10-05 06:35] VITALS: BP 95/54; PULSE 68; RESP 18; TEMP 36.6; O2SAT 98
[2022-10-05 07:38] VITALS: BP 98/55; PULSE 60; RESP 18; O2SAT 99
[2022-10-05 07:40] VITALS: BP 98/55; PULSE 60; O2SAT 99
[2022-10-05 07:41] VITALS: TEMP 36.5
== END 2022-10-05 08:04 ==
PROVIDERS: Emergency Medicine; Emergency Provider Emergency Medicine
DX: F32.A Depression, unspecified (principal); R45.851 Suicidal ideations
CPT/HCPCS: 36415; 80053; 80305; 80320; 81001; 81025; 82550; 83735; 84443; 85025; 87077; 87086; 87185; 87186; 87635; 93005; 93010; 99284; 99291; C9803

== ENCOUNTER 2023-01-07 10:30 | Emergency (ER) | payer OTHER, SELFPAY ==
[2023-01-07] VITALS (16 sets, daily range): BP systolic 98–116; BP diastolic 56–67; PULSE 79–103; RESP 18; TEMP 37.3; O2SAT 97–100; BMI 19.3
[2023-01-07] MEDS: SODIUM CHLORIDE 0.9% 1,000 ML 1000 ML IV ×2 (11:06→15:46)
[2023-01-07 11:11] LABS: Ictotest Urine Negative (Negative)
[2023-01-07 11:12] LABS: Add Manual Diff / Slide Review NO; Basophils Absolute Auto 0 /uL (0-100); Basophils Percent Auto 0.2 % (0-2); Eosinophils Absolute Auto 0 /uL (0-450); Hematocrit 31.7 % (36-46); Hemoglobin 9.9 g/dL (12.0-16.0); Lymphocytes Absolute Auto 400 /uL (1100-4500); Lymphocytes Percent Auto 3.2 % (25-40); Mean Corpuscular HGB Conc 31.2 % (30-36); Mean Corpuscular Hemoglobin 21.5 PG (26-34); Mean Corpuscular Volume 68.9 fL (80-100); Monocytes Absolute Auto 500 /uL (0-900); Neutrophils Absolute Auto 11400 /uL (1500-7000); Neutrophils Percent Auto 92.6 % (50-75); Platelet Count 269 X10^3/uL (150-400); Red Blood Cell Count 4.59 X10^6/uL (4.0-5.2); Red Cell Distribution Width 16.5 % (11.6-14.8); White Blood Cell Count 12.4 X10^3/uL (4.5-11.0)
[2023-01-07 11:16] LABS: RBC Urine 1-5/HPF (0-5/HPF)
[2023-01-07 11:17] LABS: Bacteria Urine Many (>30); Culture Indicated Urine Specimen Cultured; Squamous Epithelial Cell Urine 1-5 /HPF (0-5/HPF); WBC Urine 5-10/HPF (0-5/HPF)
[2023-01-07 11:21] LABS: Alanine Aminotransferase 13 IU/L (<35); Albumin 3.8 g/dL (3.5-5.0); Albumin Globulin Ratio 1.2 (1.0-2.8); Alkaline Phosphatase 66 U/L (38-126); Aspartate Aminotransferase 20 IU/L (14-36); BUN Creatinine Ratio 10.3 (6-22); Bilirubin Total 1.2 mg/dL (0.2-1.3); Blood Urea Nitrogen 8 mg/dL (7-17); Calcium 8.7 mg/dL (8.4-10.2); Carbon Dioxide 22 mmol/L (22-32); Chloride 102 mmol/L (98-107); Estimated Glomerular Filt Rate > 60 mL/min (>60); Globulin 3.3 g/dL (1.7-4.1); Glucose 129 mg/dL (70-100); HEMOLYSIS 16 (0-50); Lactate (Lactic Acid) 1.2 mmol/L (0.7-2.1); Potassium 3.4 mmol/L (3.4-5.1); Sodium 133 mmol/L (137-145); Total Protein 7.1 g/dL (6.3-8.2)
[2023-01-07 11:32] LABS: Hypochromasia 1+
[2023-01-07 11:33] LABS: Microcytosis 1+; Ovalocytes 1+; Poikilocytosis 1+
--- NOTE | 2023-01-07 11:45 | ED_ITS ---
HPI - Female Genitourinary General Chief complaint: Urogenital-Female Stated complaint: lower abd & back hurt/fever/chills T-1 Time Seen by Provider: 01/07/23 10:44 Source: patient Mode of arrival: Ambulatory History of Present Illness HPI Narrative: 37-year-old female nonsmoker with history of depression presents with a chief complaint of dysuria and urgency with left lower quadrant pain and left flank pain for the past few days. She is had subjective fever and chills. She is not dizzy nor weak or lightheaded. She is had some nausea but no vomiting. She denies any chest pain or shortness of breath. Her pain seems to be worse when she moves and improves with rest though she does mention that at times her pain seems to intensify without any obvious provocation. She had been having typical UTI symptoms about 1 week ago including dysuria, frequency and urgency. She does not have a primary care provider so she reached out to an online medical provider who after hearing a description of her symptoms prescribed 5 days of Ci pro which she stopped 3 days ago. She states that she may have gotten slightly better but denies any significant improvement in her symptoms. She states that she has not had any vaginal bleeding or discharge though she is sexually active. Related Data Previous Rx's Medication Instructions Recorded cephalexin 500 mg capsule 500 mg PO BID #20 caps 01/07/23 hydrocodone 5 mg-acetaminophen 325 1 tab PO Q4-6H PRN pain #10 tabs 01/07/23 mg tablet ketorolac 10 mg tablet 10 mg PO Q6H PRN pain #14 tabs 01/07/23 ondansetron 4 mg disintegrating 4 mg PO TID-QID PRN nausea and 01/07/23 tablet vomiting #10 tabs Allergies Allergy/AdvReac Type Severity Reaction Status Date / Time No Known Drug Allergies Allergy Unknown Verified 10/03/22 13:28 [NO KNOWN DRUG ALLERGIES] Review of Systems Review of Systems Narrative: GENERAL: See HPI HEENT: Denies sinus pain, ear pain, sore throat, difficulty swallowing, dizziness. RESPIRATORY: Denies dyspnea, cough, wheezing, hemoptysis, sputum. CARDIOVASCULAR: Denies chest pain, palpitations, orthopnea, edema, GASTROINTESTINAL: See HPI : See HPI MUSCULOSKELETAL: denies weakness, joint pain, or bony pain SKIN: Denies rash, skin lesions, or other NEUROLOGIC: Denies weakness, headache, numbness, change in speech, confusion, seizures, incoordination. PSYCHIATRIC: No concerning psychosocial issues. 12 point review of systems is negative except for those stated above Patient History Substance Use Type: does not use Exam Narrative Exam Narrative: GENERAL: [37] year old patient appears stated age. Well-developed patient, in mild distress. HEAD: Atraumatic. Normocephalic. EYES: Pupils equal round and reactive. Extraocular motions intact. No scleral icterus. No injection or drainage. ENT: Nose without bleeding, purulent drainage. Throat without erythema, tonsillar hypertrophy or exudate. Airway patent. NECK: Trachea midline. Non tender CARDIOVASCULAR: Regular rate and rhythm without murmurs, gallops, or rubs. RESPIRATORY: Clear to auscultation. Breath sounds equal bilaterally. No wheezes, rales, or rhonchi. GASTROINTESTINAL: Abdomen soft, minimal left lower quadrant pain, otherwise soft and nontender, no rebound or guarding, nondistended. PELVIC: Minimal dark bleeding, no obvious discharge. Minimal left adnexal tenderness on palpation. Exam performed with patient permission and female nurse loan reviewer EXTREMITIES: No edema or joint tenderness. BACK: Left CVA tenderness, no midline tenderness, saddle anesthesia or lower extremity numbness, tingling or weakness NEURO: AOx3. SKIN: No rash or erythema of visible areas Initial Vital Signs Initial Vital Signs: Vital Signs Temperature 99.1 F 01/07/23 10:41 Pulse Rate 100 H 01/07/23 10:41 Respiratory Rate 18 01/07/23 10:41 Blood Pressure 116/66 01/07/23 10:41 Pulse Oximetry 100 01/07/23 10:41 Oxygen Delivery Method Room Air 01/07/23 10:41 Course Orders Ordered: ED Orders 01/07/23 10:43 Ictotest Urine Stat Urine Culture Stat Urine Microscopic Stat 01/07/23 11:00 Complete Blood Count AUTO DIFF Stat Comprehensive Metabolic Panel Stat Lactate (Lactic Acid) Stat 01/07/23 11:15 Blood Culture Stat 01/07/23 15:21 CT kidney ureter bladder (KUB) Stat 01/07/23 16:22 US pelvic complete Stat 01/07/23 18:28 GC Screen Stat Genital Culture Stat Wet Prep Tric BV Tania Stat Discontinued Medications Hydromorphone HCl (Hydromorphone 1 Mg Inj) 1 mg IV NOW ONE Stop: 01/07/23 17:39 Last Admin: 01/07/23 17:46 Dose: 1 mg Documented By: CHRISTINA Sodium Chloride (Normal Saline 0.9%) 1,000 mls @ 1,000 mls/hr IV BOLUS ONE Stop: 01/07/23 11:46 Last Infusion: 01/07/23 12:20 Dose: 0 mls/hr Documented By: Admin: 01/07/23 11:06 Dose: 1,000 mls/hr Documented By: CHRISTINA Sodium Chloride (Normal Saline 0.9%) 1,000 mls @ 1,000 mls/hr IV BOLUS ONE Stop: 01/07/23 16:21 Last Infusion: 01/07/23 16:56 Dose: 0 mls/hr Documented By: Admin: 01/07/23 15:46 Dose: 1,000 mls/hr Documented By: CHRISTINA Ceftriaxone Sodium 1,000 mg/ (Sodium Chloride) 100 mls @ 200 mls/hr IV NOW ONE Stop: 01/07/23 15:23 Last Infusion: 01/07/23 16:30 Dose: 0 mls/hr Documented By: Admin: 01/07/23 15:46 Dose: 200 mls/hr Documented By: CHRISTINA Ketorolac Tromethamine (Ketorolac 30 Mg/Ml Vial) 15 mg IV NOW ONE Stop: 01/07/23 14:43 Last Admin: 01/07/23 15:00 Dose: 15 mg Documented By: CHRISTINA Ondansetron HCl (Ondansetron 4 Mg/2 Ml Inj) 4 mg IV NOW ONE Stop: 01/07/23 15:35 Last Admin: 01/07/23 15:47 Dose: 4 mg Documented By: CHRISTINA Vital Signs Vital signs: Vital Signs - 8 hr 01/07/23 10:41 01/07/23 11:44 01/07/23 11:51 Temperature 99.1 F Pulse Rate 100 H 95 H Respiratory Rate 18 Blood Pressure 116/66 109/59 L Pulse Oximetry 100 100 Oxygen Delivery Method Room Air 01/07/23 11:51 01/07/23 12:00 01/07/23 12:00 Temperature Pulse Rate 84 83 Respiratory Rate Blood Pressure 110/59 L Pulse Oximetry 100 100 Oxygen Delivery Method 01/07/23 12:30 01/07/23 12:30 01/07/23 13:00 Temperature Pulse Rate 89 Respiratory Rate Blood Pressure 98/56 L 102/58 L Pulse Oximetry 100 Oxygen Delivery Method 01/07/23 13:00 01/07/23 13:30 01/07/23 13:30 Temperature Pulse Rate 91 H 79 Respiratory Rate Blood Pressure 115/62 Pulse Oximetry 100 100 Oxygen Delivery Method 01/07/23 14:00 01/07/23 14:00 01/07/23 14:30 Temperature Pulse Rate 79 Respiratory Rate Blood Pressure 110/59 L 103/58 L Pulse Oximetry 100 Oxygen Delivery Method 01/07/23 14:30 01/07/23 14:48 01/07/23 15:00 Temperature Pulse Rate 88 85 Respiratory Rate Blood Pressure 115/57 L Pulse Oximetry 100 100 Oxygen Delivery Method 01/07/23 15:54 01/07/23 16:00 01/07/23 16:30 Temperature Pulse Rate 90 94 H 91 H Respiratory Rate Blood Pressure Pulse Oximetry 97 100 100 Oxygen Delivery Method MDM - Female Genitourinary Lab Data 01/07/23 11:00 01/07/23 11:00 Labs: Lab Results 01/07/23 01/07/23 01/07/23 Range/Units 10:43 10:43 11:00 WBC 12.4 H (4.5-11.0) X10^3/uL RBC 4.59 (4.0-5.2) X10^6/uL Hgb 9.9 L (12.0-16.0) g/dL Hct 31.7 L (36-46) % MCV 68.9 L (80-100) fL MCH 21.5 L (26-34) PG MCHC 31.2 (30-36) % RDW 16.5 H (11.6-14.8) % Plt Count 269 (150-400) X10^3/uL Neut % (Auto) 92.6 H (50-75) % Lymph % (Auto) 3.2 L (25-40) % [place] % (Auto) 4.0 (3-14) % Eos % (Auto) 0.0 L (2-4) % Baso % (Auto) 0.2 (0-2) % Neut # (Auto) 13956 H (4426-4117) /uL Lymph # (Auto) 400 L (6836-2039) /uL [place] # (Auto) 500 (0-900) /uL Eos # (Auto) 0 (0-450) /uL Baso # (Auto) 0 (0-100) /uL RBC Morphology Not Reportable Hypochromasia 1+ H Poikilocytosis 1+ H Microcytosis 1+ H Ovalocytes 1+ H Sodium (137-145) mmol/L Potassium (3.4-5.1) mmol/L Chloride (98-107) mmol/L Carbon Dioxide (22-32) mmol/L BUN (7-17) mg/dL Creatinine (0.52-1.04) mg/dL Estimated GFR (>60) mL/min BUN/Creatinine Ratio (6-22) Glucose (70-100) mg/dL Lactate (0.7-2.1) mmol/L Calcium (8.4-10.2) mg/dL Total Bilirubin (0.2-1.3) mg/dL AST (14-36) IU/L ALT (<35) IU/L Alkaline Phosphatase (38-126) U/L Total Protein (6.3-8.2) g/dL Albumin (3.5-5.0) g/dL Globulin (1.7-4.1) g/dL Albumin/Globulin Ratio (1.0-2.8) Ur Bilirubin Confirm Negative (Negative) Urine RBC 1-5/hpf D (0-5/HPF) Urine WBC 5-10/hpf H (0-5/HPF) Ur Squamous Epith Cells 1-5 /hpf (0-5/HPF) Urine Bacteria Many (>30) H (None) Ur Culture Indicated? Specimen cultured 01/07/23 01/07/23 Range/Units 11:00 11:00 WBC (4.5-11.0) X10^3/uL RBC (4.0-5.2) X10^6/uL Hgb (12.0-16.0) g/dL Hct (36-46) % MCV (80-100) fL MCH (26-34) PG MCHC (30-36) % RDW (11.6-14.8) % Plt Count (150-400) X10^3/uL Neut % (Auto) (50-75) % Lymph % (Auto) (25-40) % [place] % (Auto) (3-14) % Eos % (Auto) (2-4) % Baso % (Auto) (0-2) % Neut # (Auto) (3711-8280) /uL Lymph # (Auto) (4966-4234) /uL [place] # (Auto) (0-900) /uL Eos # (Auto) (0-450) /uL Baso # (Auto) (0-100) /uL RBC Morphology Hypochromasia Poikilocytosis Microcytosis Ovalocytes Sodium 133 L (137-145) mmol/L Potassium 3.4 (3.4-5.1) mmol/L Chloride 102 (98-107) mmol/L Carbon Dioxide 22 (22-32) mmol/L BUN 8 (7-17) mg/dL Creatinine 0.78 (0.52-1.04) mg/dL Estimated GFR > 60 (>60) mL/min BUN/Creatinine Ratio 10.3 (6-22) Glucose 129 H (70-100) mg/dL Lactate 1.2 (0.7-2.1) mmol/L Calcium 8.7 (8.4-10.2) mg/dL Total Bilirubin 1.2 (0.2-1.3) mg/dL AST 20 (14-36) IU/L ALT 13 (<35) IU/L Alkaline Phosphatase 66 (38-126) U/L Total Protein 7.1 (6.3-8.2) g/dL Albumin 3.8 (3.5-5.0) g/dL Globulin 3.3 (1.7-4.1) g/dL Albumin/Globulin Ratio 1.2 (1.0-2.8) Ur Bilirubin Confirm (Negative) Urine RBC (0-5/HPF) Urine WBC (0-5/HPF) Ur Squamous Epith Cells (0-5/HPF) Urine Bacteria (None) Ur Culture Indicated? Point of Care Testing Test Results Negative Urine Dip Bedside Urine Glucose Negative Bedside Urine Bilirubin + 1 Bedside Urine Ketone +++ 80 Urine Specific [place] 1.025 Bedside Urine Occult Blood +++ Bedside Urine pH 6.0 Bedside Urine Protein ++ 100 Bedside Urine Urobilinogen - Negative Bedside Urine Nitrite - Negative Bedside Urine Leukocytes + 70 Esterase MDM Narrative Medical decision making narrative: CC: 37-year-old female with UTI type symptoms and left lower quadrant pain with left flank pain Complicating co-morbidities: Not known Data collected from: Patient Medical records reviewed: Prior notes reviewed in our EMR Differential considered, but not limited to: UTI, pyelonephritis, kidney stone, PID, tubo-ovarian abscess, ovarian torsion versus other Exam documented above, pertinent findings include: Heart rate regular, lungs clear, minimal left lower quadrant tenderness, left CVA tenderness Lab Test results independently reviewed as above. Pertinent findings: Minimal leukocytosis with relative left shift, electrolytes and renal function within normal, lactate 1.2, urine POC and UA consistent with urine infection Independently reviewed EKG as above Imaging studies independently reviewed: CT KUB without kidney stone or hydronephrosis, medullary nephrocalcinosis in bilateral kidneys. Cystic structure in the left adnexa which may be left ovarian cyst, no bowel obstruction. Pelvic ultrasound notes probable myometrial fibroid in the lower uterine segment, unremarkable adnexa, no free fluid or torsion Treatments: Fluids, Toradol, Zofran, Rocephin, Dilaudid Re-evaluations: Patient feeling much better, pain controlled, tolerating orals Discussion: Patient with recent relatively classic UTI symptoms and 5 day course of Cipro presents with left lower quadrant and left flank pain with subjective fever and chills. Urine suggestive of infectious process, CT KUB performed as she reported some colicky type pain which was suggestive of possib le kidney stone. Thankfully no kidney stone or obstructive uropathy noted, there is suggestion of a cystic structure in the left lower quadrant. Ultrasound demonstrates possible fibroid, otherwise no torsion, tubo-ovarian abscess or other. Pelvic exam largely unremarkable, swabs sent. PID considered but thought unlikely. Disposition: see below, along with detailed discharge instructions that have been reviewed with patient as well as indications for ED re-evaluation and additional outpatient follow up Discharge Plan Departure Patient Disposition: Home Clinical Impression: Urinary tract infection Instructions: DI for Kidney Infection Activity Restrictions/Additional Instructions: *You have been diagnosed with [UTI with pyelonephritis] *What to do: *Please continue to take your regular medications as directed. [x ] New medication prescriptions sent to your pharmacy: [ [facility] [place]] [ ] New medication written as a paper prescription [ ] No new medications given *Please follow up with your primary care provider in 2-3 days, call for an appointment. Let them know you were seen in the Emergency Department and that we ask that you be seen in follow up. We will electronically transmit a record of today's note if your PCP is in our system *If you do not have a primary care provider please contact the [facility] Resource line at [phone]. They will ask some questions about your medical history and help get you set up with a doctor in the community. *Return to Emergency Department if you should have any new, worsening or concerning symptoms, such as [fever greater than 101 F, shaking chills, worsening pain, persistent vomiting or other bothersome symptoms] You have been prescribed a short course of narcotic medications. These are potentially dangerous and addictive medications that should be used carefully. While on these medications you cannot drive or operate heavy machinery. Additionally, you cannot sign legal documents or perform any duties such as this. 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 Please understand that we cannot provide further refills of narcotics or controlled substances through the ED and your pain management will need to be through your Primary Care Provider Prescriptions: New hydrocodone-acetaminophen 5-325 mg tablet 1 tab PO Q4-6H PRN (Reason: pain) Qty: 10 0RF ketorolac 10 mg tablet 10 mg PO Q6H PRN (Reason: pain) Qty: 14 0RF cephalexin 500 mg capsule 500 mg PO BID Qty: 20 0RF ondansetron 4 mg tablet,disintegrating 4 mg PO TID-QID PRN (Reason: nausea and vomiting) Qty: 10 0RF Referrals: Miscellaneous,Doctor, MD [Primary Care Provider] - Stand Alone Forms: Patient Portal/API
[2023-01-07] MEDS: KETOROLAC 30 MG/ML VIAL 15 MG IV (15:00)
--- NOTE | 2023-01-07 15:21 | DI.CT.S_ITS ---
PROCEDURE: CT KIDNEY URETER BLADDER (KUB) INDICATIONS: severe LLQ and L flank pain TECHNIQUE: Axial sections were acquired from the lung bases to the pubic symphysis. Coronal and sagittal reformats were performed. For radiation dose reduction, the following was used: automated exposure control, adjustment of mA and/or kV according to patient size. COMPARISON: None. FINDINGS: Image quality: Excellent. Lung bases: Unremarkable. Heart: No significant findings. URINARY: Right Kidney: Medullary nephrocalcinosis is seen. No hydronephrosis. Right Ureter: No hydroureter. Left Kidney: Medullary nephrocalcinosis is noted. No hydronephrosis. Left Ureter: No hydroureter. Bladder: Normal wall thickness. No stones. ABDOMEN: Liver: There is hepatomegaly, no discrete hepatic lesion. Gallbladder: Unremarkable. Biliary ducts: Unremarkable. Pancreas: Unremarkable. Spleen: Unremarkable. Adrenal Glands: Unremarkable. Stomach and Bowel: There is no bowel obstruction. No abnormal bowel wall thickening or mesenteric fat stranding. No abscess collection. Mild fecal stasis in the colon is seen. Peritoneum: No abnormal intraperitoneal fluid. No free air. Ventral Wall: No hernia. Abdominal Nodes: No enlarged retroperitoneal or mesenteric lymph nodes. Vessels: Aorta and inferior vena cava are normal in size. PELVIS: Pelvic Organs: No gross abnormality is seen in uterus and right adnexa. Fluid density is seen in left adnexa measures 2.8 x 2.8 cm in size which may represent left ovarian cyst. Pelvic Nodes: Unremarkable. Miscellaneous: No inguinal hernias are seen. Bones: No suspicious bony lesions. No acute vertebral body compression fracture. IMPRESSION: 1. Medullary nephrocalcinosis seen in bilateral kidneys. No hydronephrosis or hydroureter. No gross abnormality is seen in urinary bladder. 2. Cystic structure in left adnexa which may represent left ovarian cyst . Ultrasound of pelvis can be done for further evaluation if indicated. 3. No bowel obstruction or abnormal bowel wall thickening. No free fluid or free air. No abscess collection. Dictated by: Fransisco Patel M.D. on 01/07/2023 at 15:36 Approved by: Fransisco Patel M.D. on 01/07/2023 at 15:52
[2023-01-07] MEDS: cefTRIAXone 1,000 MG in SODIUM CHLORIDE 0.9% 100 ML 200 MG IV (15:46)
[2023-01-07] MEDS: ONDANSETRON 4 MG/2 ML INJ IV (15:47)
--- NOTE | 2023-01-07 16:22 | DI.US.S_ITS ---
PROCEDURE: US PELVIC COMPLETE INDICATIONS: LLQ pain TECHNIQUE: Real-time scanning was performed of the pelvic organs, with image documentation. Additional endovaginal scanning was necessary due to incomplete visualization of the adnexal and endometrial structures by transabdominal scanning. COMPARISON: None. FINDINGS: Uterus: Uterus is retroverted and normal in size at 7.7 x 5.4 x 6.0 cm. The myometrium is homogeneous. The endometrium measures 2.2 mm combined thickness. Hypoechoic myometrial structure lower uterine segment measures 2.2 x 0.4 x 2.1 cm, possible fibroid Ovaries: The right ovary measures 2.3 x 1.4 x 3.1 cm, with a calculated ovarian volume of 5.2 cc. The left ovary measures 2.9 x 1.3 x 2.7 cm, with a calculated ovarian volume of 5.3 cc. The ovaries have a normal sonographic appearance. Less than 12 follicles can be seen in each ovary. No adnexal masses are seen. Other: No pathologic free abdominal or pelvic fluid. IMPRESSION: Probable myometrial fibroid in the lower uterine segment. Unremarkable adnexa. No free fluid or torsion Approved by: Ray Vazquez M.D. on 01/07/2023 at 17:24
[2023-01-07] MEDS: HYDROMORPHONE 1 MG INJ IV (17:46)
== END 2023-01-07 19:12 | disposition home or self-care (01) ==
PROVIDERS: Emergency Provider Emergency Medicine
DX: N39.0 Urinary tract infection, site not specified (principal); N12 Tubulo-interstitial nephritis, not specified as acute or chronic
CPT/HCPCS: 36415; 74176; 76830; 76856; 80053; 81003; 81015; 81025; 83605; 85025; 87040; 87070; 87077; 87081; 87086; 87186; 87205; 87210; 87252; 93975; 96365; 96375; 99284; J0696; J1170; J1885; J2405

== ENCOUNTER 2023-01-23 18:54 | Emergency (ER) | payer OTHER, SELFPAY ==
[2023-01-23 19:48] VITALS: BP 130/71; PULSE 112; RESP 20; TEMP 37.7; O2SAT 97; BMI 19.3
[2023-01-23 20:30] LABS: Add Manual Diff / Slide Review NO; Basophils Absolute Auto 0 /uL (0-100); Basophils Percent Auto 0.2 % (0-2); Eosinophils Absolute Auto 0 /uL (0-450); Eosinophils Percent Auto 0.1 % (2-4); Hematocrit 29.1 % (36-46); Hemoglobin 9.4 g/dL (12.0-16.0); Lymphocytes Absolute Auto 900 /uL (1100-4500); Lymphocytes Percent Auto 10.1 % (25-40); Mean Corpuscular HGB Conc 32.1 % (30-36); Mean Corpuscular Hemoglobin 21.9 PG (26-34); Mean Corpuscular Volume 68.3 fL (80-100); Monocytes Absolute Auto 600 /uL (0-900); Monocytes Percent Auto 6.5 % (3-14); Neutrophils Absolute Auto 7600 /uL (1500-7000); Neutrophils Percent Auto 83.1 % (50-75); Platelet Count 404 X10^3/uL (150-400); Red Blood Cell Count 4.26 X10^6/uL (4.0-5.2); Red Cell Distribution Width 17.2 % (11.6-14.8); White Blood Cell Count 9.2 X10^3/uL (4.5-11.0)
[2023-01-23 20:33] LABS: Alanine Aminotransferase 16 IU/L (<35); Albumin 3.7 g/dL (3.5-5.0); Albumin Globulin Ratio 1.3 (1.0-2.8); Alkaline Phosphatase 56 U/L (38-126); Aspartate Aminotransferase 17 IU/L (14-36); BUN Creatinine Ratio 8.2 (6-22); Bilirubin Total 0.7 mg/dL (0.2-1.3); Blood Urea Nitrogen 7 mg/dL (7-17); Calcium 8.5 mg/dL (8.4-10.2); Carbon Dioxide 23 mmol/L (22-32); Chloride 100 mmol/L (98-107); Estimated Glomerular Filt Rate > 60 mL/min (>60); Globulin 2.9 g/dL (1.7-4.1); Glucose 184 mg/dL (70-100); HEMOLYSIS < 15 (0-50); Lipase 66 U/L (23-300); Potassium 3.4 mmol/L (3.4-5.1); Sodium 131 mmol/L (137-145); Total Protein 6.6 g/dL (6.3-8.2)
[2023-01-23 20:43] LABS: Anisocytosis 1+; Microcytosis 1+; Ovalocytes 1+
[2023-01-23 22:30] VITALS: BP 115/58
[2023-01-23 22:38] VITALS: BP 115/58; PULSE 81; RESP 16; TEMP 36.8; O2SAT 98
[2023-01-23 23:00] VITALS: BP 104/61; PULSE 75; O2SAT 98
[2023-01-23 23:30] VITALS: BP 104/59; PULSE 69; O2SAT 98
[2023-01-24] VITALS (13 sets, daily range): BP systolic 92–106; BP diastolic 51–63; PULSE 66–79; RESP 14; O2SAT 98–100
[2023-01-24 01:21] LABS: Bilirubin Urine UA NEGATIVE (NEGATIVE); Color Urine UA YELLOW; Glucose Urine UA 2+ g/dL (Negative); Ketones Urine UA NEGATIVE (NEGATIVE); Leukocyte Esterase Urine UA 2+ (NEGATIVE); Nitrite Urine UA NEGATIVE (Negative); Occult Blood Urine UA TRACE-INTACT (Negative); Protein Urine UA NEGATIVE (Negative); Specific Gravity Urine UA <=1.005 (1.000-1.035); Urobilinogen Urine UA 0.2 E.U./dL (0.2)
[2023-01-24 01:22] LABS: pH Urine UA 6.5 (4.5-8.0)
[2023-01-24 01:23] LABS: Appearance Urine UA SL CLOUDY
[2023-01-24 01:36] LABS: RBC Urine 0-1/HPF (0-5/HPF); Squamous Epithelial Cell Urine 5-10 /HPF (0-5/HPF); WBC Urine 1-5/HPF (0-5/HPF)
[2023-01-24 01:37] LABS: Transitional Epi Cells Urine 1-5/HPF (0-5/HPF)
[2023-01-24 01:38] LABS: Bacteria Urine Moderate (10-30); Culture Indicated Urine Cult Not Indicated
--- NOTE | 2023-01-24 01:48 | ED_ITS ---
HPI - Abdominal Pain General Chief Complaint: Abdominal Pain Stated Complaint: lower back pain/fever 103.4 Time Seen by Provider: 01/24/23 01:29 Source: patient Mode of arrival: Ambulatory History of Present Illness HPI narrative: Patient is a 37-year-old history of depression, presenting today with ongoing abdominal pain and fever for about 2 weeks. She was seen evaluated here January 07 she would blood cultures a pelvic exam she would similar symptoms with painful frequent urination. None of her cultures grew anything. She was tr eated with antibiotic which she says she actually did not take. She continues to have left-sided flank and abdominal pain. She now he is not eating mostly by choice she has a mann far a day. She is drinking fluids. She felt like she might pass out earlier today. She took a picture of her temperature which was 103. She says some days she does not have a temperature and some days she does. She wakes up drenched in sweat. He says just generally not getting better. She also complains of headaches. She is someone who does get headaches these headaches are out of the norm. She is sensitive to light. Related Data Previous Rx's Medication Instructions Recorded cephalexin 500 mg capsule 500 mg PO BID #20 caps 01/07/23 hydrocodone 5 mg-acetaminophen 325 1 tab PO Q4-6H PRN pain #10 tabs 01/07/23 mg tablet ketorolac 10 mg tablet 10 mg PO Q6H PRN pain #14 tabs 01/07/23 ondansetron 4 mg disintegrating 4 mg PO TID-QID PRN nausea and 01/07/23 tablet vomiting #10 tabs Allergies Allergy/AdvReac Type Severity Reaction Status Date / Time No Known Drug Allergies Allergy Unknown Verified 01/23/23 19:56 [NO KNOWN DRUG ALLERGIES] Review of Systems Review of Systems ROS Unobtainable: All systems reviewed & are unremarkable except as noted in HPI and below Patient History Social History Smoking Status: Never smoker Smoking Status: Never smoker Substance Use Type: does not use Exam Initial Vital Signs Initial Vital Signs: Vital Signs Temperature 100 F H 01/23/23 19:48 Pulse Rate 112 H 01/23/23 19:48 Respiratory Rate 20 01/23/23 19:48 Blood Pressure 130/71 01/23/23 19:48 Pulse Oximetry 97 01/23/23 19:48 Oxygen Delivery Method Room Air 01/23/23 19:48 GENERAL: Alert well-appearing 37-year-old female HEENT: Head atraumatic,EOMI, pupils reactive, face symmetric, moist mucous membranes, no meningeal signs, curling up in position CARDIOVASCULAR: Regular rate and rhythm without murmurs, rubs or gallops. RESPIRATORY: Breath sounds equal bilaterally, no wheezes rales or rhonchi. ABDOMEN: Soft, nontender. Normoactive bowel sounds all 4 quadrants. No guarding or rebound. EXTREMITIES: Normal range of motion, no clubbing or edema. Neurovascularly intact NEUROLOGICAL: Alert and oriented x4. SKIN: Warm, dry, no laceration, no petechiae, no rashes or lesions. Course Orders Ordered: ED Orders 01/24/23 01:07 Urinalysis and Microscopic Stat 01/24/23 02:20 Lactate (Lactic Acid) Stat 01/24/23 02:21 Procalcitonin Stat 01/24/23 02:55 Covid-19 + FLU A/B + RSV - PCR Stat Discontinued Medications Ketorolac Tromethamine (Ketorolac 30 Mg/Ml Vial) 15 mg IV NOW ONE Stop: 01/24/23 02:21 Last Admin: 01/24/23 02:56 Dose: 15 mg Documented By: STELLA Ondansetron HCl (Ondansetron 4 Mg Odt) 4 mg PO NOW PRN PRN Reason: Nausea And Vomiting Ondansetron HCl (Ondansetron 4 Mg/2 Ml Inj) 4 mg IV NOW PRN PRN Reason: Nausea And Vomiting Vital Signs Vital signs: Vital Signs - 8 hr 01/23/23 23:30 01/24/23 00:00 01/24/23 00:30 Pulse Rate 69 75 74 Respiratory Rate Blood Pressure 104/59 L 92/51 L 102/51 L Pulse Oximetry 98 98 98 Oxygen Delivery Method Room Air Room Air Room Air 01/24/23 01:00 01/24/23 01:12 01/24/23 01:30 Pulse Rate 74 73 Respiratory Rate 14 Blood Pressure 106/58 L 98/55 L Pulse Oximetry 98 98 Oxygen Delivery Method Room Air 01/24/23 01:30 01/24/23 02:00 01/24/23 02:28 Pulse Rate 66 71 79 Respiratory Rate Blood Pressure Pulse Oximetry 98 98 100 Oxygen Delivery Method 01/24/23 02:28 01/24/23 02:30 01/24/23 02:30 Pulse Rate 77 Respiratory Rate Blood Pressure 102/62 100/63 Pulse Oximetry 99 Oxygen Delivery Method Room Air 01/24/23 03:00 01/24/23 03:00 01/24/23 03:30 Pulse Rate 76 Respiratory Rate Blood Pressure 102/57 L 103/58 L Pulse Oximetry 99 Oxygen Delivery Method Room Air 01/24/23 03:30 01/24/23 04:00 01/24/23 04:05 Pulse Rate 70 70 72 Respiratory Rate Blood Pressure Pulse Oximetry 98 99 98 Oxygen Delivery Method Room Air 01/24/23 04:07 01/24/23 04:07 Pulse Rate 69 Respiratory Rate Blood Pressure 98/55 L Pulse Oximetry 98 Oxygen Delivery Method MDM - Abdominal Pain Lab Data 01/23/23 20:12 01/23/23 20:12 Labs: Lab Results 01/23/23 01/23/23 01/23/23 Range/Units 20:12 20:12 20:12 WBC 9.2 (4.5-11.0) X10^3/uL RBC 4.26 (4.0-5.2) X10^6/uL Hgb 9.4 L (12.0-16.0) g/dL Hct 29.1 L (36-46) % MCV 68.3 L (80-100) fL MCH 21.9 L (26-34) PG MCHC 32.1 (30-36) % RDW 17.2 H (11.6-14.8) % Plt Count 404 H (150-400) X10^3/uL Neut % (Auto) 83.1 H (50-75) % Lymph % (Auto) 10.1 L (25-40) % Mcdowell % (Auto) 6.5 (3-14) % Eos % (Auto) 0.1 L (2-4) % Baso % (Auto) 0.2 (0-2) % Neut # (Auto) 7600 H (9723-3727) /uL Lymph # (Auto) 900 L (4620-7527) /uL Mcdowell # (Auto) 600 (0-900) /uL Eos # (Auto) 0 (0-450) /uL Baso # (Auto) 0 (0-100) /uL RBC Morphology See below Anisocytosis 1+ H Microcytosis 1+ H Ovalocytes 1+ H Sodium 131 L (137-145) mmol/L Potassium 3.4 (3.4-5.1) mmol/L Chloride 100 (98-107) mmol/L Carbon Dioxide 23 (22-32) mmol/L BUN 7 (7-17) mg/dL Creatinine 0.85 (0.52-1.04) mg/dL Estimated GFR > 60 (>60) mL/min BUN/Creatinine Ratio 8.2 (6-22) Glucose 184 H (70-100) mg/dL Lactate 1.7 (0.7-2.1) mmol/L Calcium 8.5 (8.4-10.2) mg/dL Total Bilirubin 0.7 (0.2-1.3) mg/dL AST 17 (14-36) IU/L ALT 16 (<35) IU/L Alkaline Phosphatase 56 (38-126) U/L Total Protein 6.6 (6.3-8.2) g/dL Albumin 3.7 (3.5-5.0) g/dL Globulin 2.9 (1.7-4.1) g/dL Albumin/Globulin Ratio 1.3 (1.0-2.8) Lipase 66 (23-300) U/L Procalcitonin (<0.5) ng/mL Urine Color Urine Appearance Urine pH (4.5-8.0) Ur Specific [place] (1.000-1.035) Urine Protein (Negative) Urine Glucose (UA) (Negative) g/dL Urine Ketones (NEGATIVE) Urine Occult Blood (Negative) Urine Nitrate (Negative) Urine Bilirubin (NEGATIVE) Urine Urobilinogen (0.2) E.U./dL Ur Leukocyte Esterase (NEGATIVE) Urine RBC (0-5/HPF) Urine WBC (0-5/HPF) Ur Squamous Epith Cells (0-5/HPF) Ur Transition Epith Cell (0-5/HPF) Urine Bacteria (None) Ur Culture Indicated? SARS-CoV-2 (PCR) (Negative) Influenza A (RT-PCR) (NEGATIVE) Influenza B (RT-PCR) (NEGATIVE) RSV (PCR) (Negative) 01/23/23 01/23/23 01/24/23 Range/Units 20:12 22:45 02:55 WBC (4.5-11.0) X10^3/uL RBC (4.0-5.2) X10^6/uL Hgb (12.0-16.0) g/dL Hct (36-46) % MCV (80-100) fL MCH (26-34) PG MCHC (30-36) % RDW (11.6-14.8) % Plt Count (150-400) X10^3/uL Neut % (Auto) (50-75) % Lymph % (Auto) (25-40) % Mcdowell % (Auto) (3-14) % Eos % (Auto) (2-4) % Baso % (Auto) (0-2) % Neut # (Auto) (7860-4340) /uL Lymph # (Auto) (6457-2532) /uL Mcdowell # (Auto) (0-900) /uL Eos # (Auto) (0-450) /uL Baso # (Auto) (0-100) /uL RBC Morphology Anisocytosis Microcytosis Ovalocytes Sodium (137-145) mmol/L Potassium (3.4-5.1) mmol/L Chloride (98-107) mmol/L Carbon Dioxide (22-32) mmol/L BUN (7-17) mg/dL Creatinine (0.52-1.04) mg/dL Estimated GFR (>60) mL/min BUN/Creatinine Ratio (6-22) Glucose (70-100) mg/dL Lactate (0.7-2.1) mmol/L Calcium (8.4-10.2) mg/dL Total Bilirubin (0.2-1.3) mg/dL AST (14-36) IU/L ALT (<35) IU/L Alkaline Phosphatase (38-126) U/L Total Protein (6.3-8.2) g/dL Albumin (3.5-5.0) g/dL Globulin (1.7-4.1) g/dL Albumin/Globulin Ratio (1.0-2.8) Lipase (23-300) U/L Procalcitonin 0.14 (<0.5) ng/mL Urine Color Yellow Urine Appearance Sl cloudy Urine pH 6.5 (4.5-8.0) Ur Specific [place] <=1.005 (1.000-1.035) Urine Protein Negative (Negative) Urine Glucose (UA) 2+ H (Negative) g/dL Urine Ketones Negative (NEGATIVE) Urine Occult Blood Trace-intact (Negative) Urine Nitrate Negative (Negative) Urine Bilirubin Negative (NEGATIVE) Urine Urobilinogen 0.2 (0.2) E.U./dL Ur Leukocyte Esterase 2+ H (NEGATIVE) Urine RBC 0-1/hpf (0-5/HPF) Urine WBC 1-5/hpf (0-5/HPF) Ur Squamous Epith Cells 5-10 /hpf H (0-5/HPF) Ur Transition Epith Cell 1-5/hpf (0-5/HPF) Urine Bacteria Moderate (10-30) H (None) Ur Culture Indicated? Cult not indicated SARS-CoV-2 (PCR) Negative (Negative) Influenza A (RT-PCR) Flu a negative (NEGATIVE) Influenza B (RT-PCR) Flu b negative (NEGATIVE) RSV (PCR) Negative (Negative) Point of care testing: Point of Care Testing Test Results Negative Urine Dip Bedside Urine Glucose 250 mg/dl Bedside Urine Bilirubin - Negative Bedside Urine Ketone - Negative Urine Specific [place] 1.005 Bedside Urine Occult Blood +/- Bedside Urine pH 6 Bedside Urine Protein - Negative Bedside Urine Urobilinogen - Negative Bedside Urine Nitrite - Negative Bedside Urine Leukocytes + 70 Esterase MDM Narrative Medical decision making narrative: Patient 37-year-old female who reports with left flank pain fevers off and on for about 2 weeks. Decrease in appetite and some anorexia. Blood work today is overall reassuring she is very tender on exam in her left flank. She says that she took 10 days of cephalexin. She had a pelvic exam cultures and blood cultures were negative from January 07. She is drug procalcitonin lactate and vitals here in the emergency department. I see no need for repeat imaging at this time. Difficult to tell what is causing her pain and fever. May need infectious disease. She is literally curled in position for 9 hours in the emergency department. She is ambulatory to the restroom really do not see any sign of meningitis. We did discuss it however out think necessary to do a lumbar puncture today. Discharge Plan Departure Patient Disposition: Home Clinical Impression: Fever Instructions: DI for Fever (Symptom) -- Adult Activity Restrictions/Additional Instructions: *You have been diagnosed with fever *What to do: At this time I do not know what is causing your fever. You may require Infectious Disease referral and evaluation. I recommend keeping a log of your fevers. Try to increase your nutrition to see if this helps some of her symptoms it will unlikely help your fever. *Continue to take medications as directed *Follow up with your primary care provider in 2-3 days or call [phone] *Return to ER if you should have increasing pain persistent fever, vomiting or any new, worsening or concerning symptoms Prescriptions: No Action hydrocodone-acetaminophen 5-325 mg tablet 1 tab PO Q4-6H PRN (Reason: pain) Qty: 10 0RF ketorolac 10 mg tablet 10 mg PO Q6H PRN (Reason: pain) Qty: 14 0RF cephalexin 500 mg capsule 500 mg PO BID Qty: 20 0RF ondansetron 4 mg tablet,disintegrating 4 mg PO TID-QID PRN (Reason: nausea and vomiting) Qty: 10 0RF Referrals: Miscellaneous,Doctor, MD [Primary Care Provider] - Stand Alone Forms: Patient Portal/API, Work Release Note
[2023-01-24 02:35] LABS: Lactate (Lactic Acid) 1.7 mmol/L (0.7-2.1)
[2023-01-24 02:53] LABS: Procalcitonin 0.14 ng/mL (<0.5)
[2023-01-24] MEDS: KETOROLAC 30 MG/ML VIAL 15 MG IV (02:56)
[2023-01-24 03:39] LABS: Influenza A - CEPHEID Flu A NEGATIVE (NEGATIVE); Influenza B - CEPHEID Flu B NEGATIVE (NEGATIVE); Respiratory Syncytial Virus Negative (Negative)
[2023-01-24 03:41] LABS: COVID-19 CEPHEID 4-PLEX PCR Negative (Negative)
== END 2023-01-24 04:12 | disposition home or self-care (01) ==
PROVIDERS: Emergency Medicine; Emergency Provider Emergency Medicine
DX: R10.9 Unspecified abdominal pain (principal); R50.9 Fever, unspecified; Z20.822 Contact with and (suspected) exposure to COVID-19
CPT/HCPCS: 0241U; 36415; 80053; 81001; 81003; 81025; 83605; 83690; 84145; 85025; 96374; 99284; J1885

== ENCOUNTER → 2023-06-17 16:47 | Outpatient (CLI) | payer OTHER, SELFPAY | PROVIDERS: Visit Provider Nurse Practitioner Family | DX: N94.9 Unspecified condition associated with female genital organs and menstrual cycle (principal) | CPT/HCPCS: 87086; 87210 ==

== ENCOUNTER → 2024-12-31 17:16 | Outpatient (CLI) | payer OTHER, SELFPAY | PROVIDERS: Visit Provider Nurse Practitioner Family | DX: R30.0 Dysuria (principal) | CPT/HCPCS: 87077; 87086; 87186 ==

== ENCOUNTER 2025-03-11 12:33 | Emergency (ER) | payer OTHER, SELFPAY ==
[2025-03-11 12:36] VITALS: BP 135/68; PULSE 94; RESP 18; TEMP 37.1; O2SAT 97; BMI 18.8
--- NOTE | 2025-03-11 13:00 | PC.NURSE ---
Family in [place] asking staff for pain medication for pt. Dr Buenrostro notified.
--- NOTE | 2025-03-11 14:05 | ED.BACK ---
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 Patient was seen at [facility] ER with no imaging done but given oxycodone and methocarbamol with no significant relief of her symptoms. Patient denies nausea, vomiting, fever, chills, bowel, or bladder, incontinence, gait instability, numbness, tingling, down, the legs or any urinary complaints. Other than what is stated 14 point review of system is negative Related Data Previous Rx's ?Medication ?Instructions ?Recorded cefdinir 300 mg capsule 300 mg PO BID #10 caps 12/31/24 ketorolac 10 mg tablet 10 mg PO Q6H PRN pain #20 tabs 03/11/25 prednisone 20 mg tablet 20 mg PO DAILY #5 tabs 03/11/25 Allergies Allergy/AdvReac Type Severity Reaction Status Date / Time No Known Drug Allergies (NO Allergy Unknown Verified 03/11/25 12:36 KNOWN DRUG ALLERGIES) Review of Systems Review of Systems ROS Unobtainable: All systems reviewed & are unremarkable except as noted in HPI and below Patient History Smoking Status: Never smoker Exam Narrative Exam Narrative: GENERAL: [39] year old patient appears stated age. Well-developed patient, in mild distress. HEAD: Atraumatic. Normocephalic. EYES: Pupils equal round and reactive. Extraocular motions intact. No scleral icterus. No injection or drainage. NECK: Trachea midline. Non tender EXTREMITIES: No edema or joint tenderness. BACK: No obvious deformity or crepitance. No flank tenderness. TTP T10-L2 NEURO: AOx3. GCS 15 nonfocal neuro exam SKIN: No rash or erythema of visible areas Initial Vital Signs Initial Vital Signs: Vital Signs Temperature 98.7 F 03/11/25 12:36 Pulse Rate 94 H 03/11/25 12:36 Respiratory Rate 18 03/11/25 12:36 Blood Pressure 135/68 03/11/25 12:36 Pulse Oximetry 97 03/11/25 12:36 Oxygen Delivery Method Room Air 03/11/25 12:36 Course Vital Signs Vital signs: Vital Signs - 8 hr 03/11/25 12:36 Temperature 98.7 F Pulse Rate 94 H Respiratory Rate 18 Blood Pressure 135/68 Pulse Oximetry 97 Oxygen Delivery Method Room Air MDM - Back Pain/Injury Imaging Data Extremity x-ray #1: Radiologist's Impression: [address] [address] [address] Scan Report Signed Patient: Norma Crowe MR#: [id number] : 1985 Acct:[id number] Age/Sex: 39 / F Date of Service: 03/11/25 Loc: ED Accession Number: [id number] Procedure: CT thoracic spine wo con Ordering Provider: Michael Buenrostro D.O. PROCEDURE: CT THORACIC SPINE WO CON INDICATIONS: pain TECHNIQUE: Noncontrast 3 mm thick sections acquired through the region of interest in the thoracic spine. Sagittal and coronal reformats were then constructed. For radiation dose reduction, the following was used: automated exposure control. COMPARISON: [facility], CT, CT LUMBAR SPINE WO CON, 03/11/2025, 14:26. FINDINGS: Image quality: This examination is limited by involuntary motion artifact, particularly inferiorly. Bones: There is normal overall bony alignment. No acute vertebral body compression fractures. No significant neural foraminal or central canal narrowing can be seen. A 1 cm focus of low density can be seen within the superolateral right aspect of the T7 vertebral body, as on series 4, image 23 and on series 5, image 28. Soft tissues: No paravertebral masses or hematomas. Visualized posteromedial lungs appear clear. IMPRESSION: No carina acute CT abnormality is seen. There is low density seen within the T7 vertebral body, which is most likely related to a benign hemangioma in a patient of this age. Although no specific imaging follow-up is recommended, attention should be paid to this focus on any future follow-up studies. Dictated by: Adelso Aguayo M.D. on 03/11/2025 at 13:47 Approved by: Adelso Aguayo M.D. on 03/11/2025 at 13:[address] [address] [address] Scan Report Signed Patient: Norma Crowe MR#: [id number] : 1985 Acct:[id number] Age/Sex: 39 / F Date of Service: 03/11/25 Loc: ED Accession Number: [id number] Procedure: CT lumbar spine wo con Ordering Provider: Michael Buenrostro D.O. PROCEDURE: CT LUMBAR SPINE WO CON INDICATIONS: pain TECHNIQUE: Noncontrast 3 mm thick sections acquired from the T12 level to the sacrum. Sagittal and coronal reformats were constructed. For radiation dose reduction, the following was used: automated exposure control. COMPARISON: [facility], CT, CT KIDNEY URETER BLADDER (KUB), 01/07/2023, 15:29. [facility], CT, CT THORACIC SPINE WO CON, 03/11/2025, 14:26. FINDINGS: Image quality: Excellent. Bones: There is normal bony alignment. No acute vertebral body compression fractures. No suspicious lytic or blastic bony lesions. No pars defects. The disc spaces appear normal. No significant neural foraminal or central canal narrowing can be seen. Soft tissues: No retroperitoneal masses or hematomas. Visualized aorta is normal in caliber. Is presumed physiologic cyst is seen of the right ovary, as on series 3, image 98. The IUD is seen at its expected location. IMPRESSION: Lumbar CT within normal limits. Additional findings: IUD MDM Narrative Medical decision making narrative: Vital signs, nurse triage note, medication list, previous ER visits, and all imaging studies reviewed. There low density seen within T7 vertebral body most likely related to a benign hemangioma in a patient of this age. Although no specific imaging follow up is recommended attention should be paid to this area for future follow up study. Patient given Dilaudid and Toradol here. Differential diagnosis include fracture dislocation spondylolysis spondylolisthesis and spondylosis. DC home on prednisone and ketorlac. Discharge Plan Departure Patient Disposition: Home Clinical Impression: Acute low back pain Qualifiers: Back pain laterality: left Sciatica presence: without sciatica Qualified Code(s): M54.50 - Low back pain, unspecified Hemangioma Qualifiers: Hemangioma site: other site Qualified Code(s): D18.09 - Hemangioma of other sites Instructions: DI for Back Spasm Activity Restrictions/Additional Instructions: Return with new or worsening symptoms. Take your medicines as directed. Follow up PCP in 1 week if no improvement in symptoms. Prescriptions: New prednisone 20 mg tablet 20 mg PO DAILY Qty: 5 0RF ketorolac 10 mg tablet 10 mg PO Q6H PRN (Reason: pain) Qty: 20 0RF Rx Instructions: maximum total duration of 5 days from all oral, intranasal, or parenteral formulations No Action cefdinir 300 mg capsule 300 mg PO BID Qty: 10 0RF Referrals: Miscellaneous,Doctor, MD [Primary Care Provider, Medical] Stand Alone Forms: Patient Portal/API
--- NOTE | 2025-03-11 14:10 | DI.CT.S_ITS ---
PROCEDURE: CT THORACIC SPINE WO CON INDICATIONS: pain TECHNIQUE: Noncontrast 3 mm thick sections acquired through the region of interest in the thoracic spine. Sagittal and coronal reformats were then constructed. For radiation dose reduction, the following was used: automated exposure control. COMPARISON: [facility], CT, CT LUMBAR SPINE WO CON, 03/11/2025, 14:26. FINDINGS: Image quality: This examination is limited by involuntary motion artifact, particularly inferiorly. Bones: There is normal overall bony alignment. No acute vertebral body compression fractures. No significant neural foraminal or central canal narrowing can be seen. A 1 cm focus of low density can be seen within the superolateral right aspect of the T7 vertebral body, as on series 4, image 23 and on series 5, image 28. Soft tissues: No paravertebral masses or hematomas. Visualized posteromedial lungs appear clear. IMPRESSION: No carina acute CT abnormality is seen. There is low density seen within the T7 vertebral body, which is most likely related to a benign hemangioma in a patient of this age. Although no specific imaging follow-up is recommended, attention should be paid to this focus on any future follow-up studies. Dictated by: Adelso Aguayo M.D. on 03/11/2025 at 13:47 Approved by: Adelso Aguayo M.D. on 03/11/2025 at 13:50
--- NOTE | 2025-03-11 14:10 | DI.CT.S_ITS ---
PROCEDURE: CT LUMBAR SPINE WO CON INDICATIONS: pain TECHNIQUE: Noncontrast 3 mm thick sections acquired from the T12 level to the sacrum. Sagittal and coronal reformats were constructed. For radiation dose reduction, the following was used: automated exposure control. COMPARISON: [facility], CT, CT KIDNEY URETER BLADDER (KUB), 01/07/2023, 15:29. [facility], CT, CT THORACIC SPINE WO CON, 03/11/2025, 14:26. FINDINGS: Image quality: Excellent. Bones: There is normal bony alignment. No acute vertebral body compression fractures. No suspicious lytic or blastic bony lesions. No pars defects. The disc spaces appear normal. No significant neural foraminal or central canal narrowing can be seen. Soft tissues: No retroperitoneal masses or hematomas. Visualized aorta is normal in caliber. Is presumed physiologic cyst is seen of the right ovary, as on series 3, image 98. The IUD is seen at its expected location. IMPRESSION: Lumbar CT within normal limits. Additional findings: IUD Dictated by: Adelso Aguayo M.D. on 03/11/2025 at 13:51 Approved by: Adelso Aguayo M.D. on 03/11/2025 at 13:53
[2025-03-11] MEDS: KETOROLAC 30 MG/ML VIAL IM (14:15)
[2025-03-11] MEDS: HYDROMORPHONE 1 MG INJ IM (14:16)
[2025-03-11 15:16] VITALS: BP 112/67; PULSE 62; RESP 16; TEMP 36.9; O2SAT 98
== END 2025-03-11 15:34 | disposition home or self-care (01) ==
PROVIDERS: Emergency Provider Family Medicine
DX: M54.50 Low back pain, unspecified (principal); D18.09 Hemangioma of other sites; M54.6 Pain in thoracic spine; X50.0XXA Overexertion from strenuous movement or load, initial encounter
CPT/HCPCS: 72128; 72131; 99283; 99284; J1171; J1885

== ENCOUNTER 2025-04-02 15:26 | Emergency (ER) | payer OTHER, SELFPAY ==
[2025-04-02 15:30] VITALS: BP 139/85; PULSE 101; RESP 18; TEMP 36.6; O2SAT 97
--- NOTE | 2025-04-02 15:49 | CM.SWNOTE ---
ED MANUFACTURING SUPPORT ENGINEER Assessment Note MANUFACTURING SUPPORT ENGINEER enters triage to meet with patient who presents due to concern for possible SI. Present in room is research professor and patient. Patient presents hysterically crying with difficulty talking and answering questions. Patient is given space and time and prompted to do some deep breathing, patient continues to cry unconsoled. Patient states I don't want to be alone, I can't do this anymore. When asked about SI and details, patient states I don't know. Patient presents with no eye contact, wearing sunglasses, head down into arms, patient is difficult to understand. Patient presents with dysthymic affect. When asked about precipitating circumstances, patient is unable to provide any details and states I don't feel well. installation specialist asks general triage questions and patient is able to answer. MANUFACTURING SUPPORT ENGINEER asks about patient's goal of this ED visit, she states I don't know, patient endorses hx of BH hospitalization and states it doesn't help, nothing helps. Patient denies any outpatient BH provider and denies interest in outpatient BH provider. research professor continues to ask patient questions in triage assessment, MANUFACTURING SUPPORT ENGINEER attempts to ask questions regarding patient's presentation to the ED and patient states leave me alone. MANUFACTURING SUPPORT ENGINEER endorses that RN and MANUFACTURING SUPPORT ENGINEER are here to help patient. Patient states I want to go home. MANUFACTURING SUPPORT ENGINEER states that patient is welcome to leave if patient is safe to do so. Patient gets up from chair in triage and exits triage room. MANUFACTURING SUPPORT ENGINEER was unable to ask patient further questions prior to patient's elopement. MANUFACTURING SUPPORT ENGINEER informs gas charger, patient leaves as VDC after 5 minutes of triage. Katie Landeros, ELECTRONICS SYSTEM MECHANIC
== END 2025-04-02 16:39 | disposition left against medical advice (07) ==
PROVIDERS: Emergency Provider Emergency Medicine
CPT/HCPCS: 99281

== ENCOUNTER 2025-04-09 02:18 | Emergency (ER) | payer OTHER, SELFPAY ==
--- NOTE | 2025-04-09 02:38 | ED_ITS ---
HPI - Psych General Chief Complaint: Psychiatric Symptoms Stated Complaint: Mental Health Concern Time Seen by Provider: 04/09/25 02:27 History of Present Illness HPI Narrative: Patient is a 39-year-old female with a past medical history of anxiety depression, comes into the ED from home with brother for evaluation of increased anxiety stress depression, according to the patient she had a recent break-up with her boyfriend which caused increased issues with her stress anxiety has had passive SI thought secondary to this. According to the brother who brings in the patient she has been having worsening episodes of this. According to the patient and brother at bedside they were evaluated at outside hospital with DCR and had a outpatient safety plan established, she is currently in a safety plan in which she contacts somebody every morning at 10:00 a.m., she was also given multiple numbers and resources for therapist and psychiatrist, she states that she currently feels like her mother's contributing to these issues however she does have her brother and father whom she feels comfortable with proceeding with the safety plan however brother brought patient in because they feel as if this is not ?enough. At time of evaluation patient is without any active suicidal or homicidal ideations. He does state that she feels like she is being a burden and this is the reason why she had mentioned to family that she wanted to jump off a bridge, however she states that she would not do this, she states that she does have 3 children. Patient denies any other symptoms such as headache visual disturbances chest pain shortness breath fever chills nausea vomiting abdominal pain or any other GI/ symptoms time. Related Data Previous Rx's ?Medication ?Instructions ?Recorded hydroxyzine HCl 25 mg tablet 25 mg PO Q8H PRN anxiety 1 week 04/09/25 #21 tabs Allergies Allergy/AdvReac Type Severity Reaction Status Date / Time No Known Drug Allergies (NO Allergy Unknown Verified 04/09/25 02:21 KNOWN DRUG ALLERGIES) Review of Systems Review of Systems Narrative: General: Denies fever, chills, weight loss HEENT: Denies headache, eye drainage, eye irritation, head trauma, sore throat, voice change Cardiovascular: Denies any chest pain, palpitations, tachycardia Respiratory: Denies any shortness of breath, cough, wheeze, stridor GI/: Denies any abdominal pain, nausea, vomiting, diarrhea, bright red blood per rectum, melanotic stools, urinary frequency, urinary retention, dysuria, hematuria MSK: Denies any joint pain, muscle pains, swelling Skin: Denies any rashes, lesions, discoloration Neuro: Denies any headache, lightheadedness, dizziness, fainting, weakness Psych: Positive anxiety stress depression Denies SI/HI Exam Narrative Exam Narrative: General: Cooperative, well-developed, not in acute distress HEENT: Normocephalic, atraumatic, PERRLA, normal sclera, eyelids normal Neck: Active full range of motion, atraumatic Chest: Normal to inspection, negative crepitus, no overlying erythema ecchymosis Respiratory: Normal respiratory effort, not in acute respiratory distress, clear to auscultation bilaterally negative cough, wheeze, tachypnea, rhonchi, rales Cardiology: Regular rate rhythm negative gallop, murmur, rubs GI/: No tenderness to palpation, soft, non rigid, normal to inspection, exam deferred MSK: Full active range of motion in all 4 extremities, atraumatic, no tenderness to palpation of any bony prominences Skin: No rashes or lesions noted Neuro: Alert awake oriented x3, moves all 4 extremities spontaneously, cranial nerves intact, able to answer all questions appropriately follows commands appropriately Psych: Cooperative, negative suicidal or homicidal ideations Initial Vital Signs Initial Vital Signs: Vital Signs Temperature 98.6 F 04/09/25 02:42 Pulse Rate 62 04/09/25 02:42 Respiratory Rate 18 04/09/25 02:42 Blood Pressure 108/73 04/09/25 02:42 Pulse Oximetry 97 04/09/25 02:42 Oxygen Delivery Method Room Air 04/09/25 02:42 Course Vital Signs Vital signs: Vital Signs - 8 hr 04/09/25 02:42 Temperature 98.6 F Pulse Rate 62 Respiratory Rate 18 Blood Pressure 108/73 Pulse Oximetry 97 Oxygen Delivery Method Room Air MDM - Psych Differential Diagnosis Differential diagnosis: Likely acute psychosis, suicidal ideation, bipolar disorder, depression, drug-induced psychotic disorder and acute anxiety MDM Narrative Medical decision making narrative: Patient is a 39-year-old female with a past medical history of anxiety depression not on any medications comes into the ED from home with family for ev aluation of increased anxiety stress, according to the patient she broke up with her boyfriend this week and has had increased symptoms. Patient was evaluated by DCR at outside hospital and is in a safety plan currently contacting social work every day in the morning at 10:00 a.m.. Brother at bedside verifies this she states that she has been doing this for a proximally 1 week. The brother however brought patient in due to the fact that patient has mentioned that she wanted to jump off a bridge, when I ask the patient about this she states that she just feels like she is a burden, she states that her father is in town and her brother is helping with a safety plan but feels like her mother who is her primary technical developer for this care plan is contributing to her issues. She states that she has tried medications in the past but they did not ?work for her states that it made her feel ?numb. Patient at time of evaluation without any active suicidal or homicidal ideation. I did offer patient inpatient placement however she states that she does not want this, she states that she was at [facility] and they did not do anything for her. I did offer patient as needed medications/it Atarax to help with her symptoms but informed her that she will ultimately need to follow up with a therapist psychiatrist and primary care doctor for continued evaluation treatment of her symptoms. I also verified with the brother that that he is willing to continue with patient's safety plan, he states that he is willing to do this. At time of evaluation patient was given strict return precautions she was without suicidal or homicidal ideations, she was given strict return precautions along with the brother they verbalized understanding of this and agrees to being discharged home with outpatient follow up Discharge Plan Departure Patient Disposition: Home Clinical Impression: Acute stress reaction Activity Restrictions/Additional Instructions: Please take the Atarax as needed, please continue doing your safety plan, please reach out to establish care with a therapist and psychiatrist Please read the discharge instructions sheet carefully and bring all papers to all doctor follow-up visits, as it may contain information that your doctor may want to see. Disease processes change and evolve, if your symptoms worsen or if you develop any new symptoms that are concerning to you please return for evaluation. Your evaluation today does not show any evidence of any life-threatening/serious illnesses requiring admission to the hospital or surgery. Please follow-up with your doctor for re-evaluation in approximately 1 day. Seek immediate medical attention for any worrisome symptoms. *If you do not have a primary care provider please contact the [facility] Resource line at [phone]. They will ask some questions about your medical history and help get you set up with a doctor in the community. Prescriptions: New hydroxyzine HCl 25 mg tablet 25 mg PO Q8H PRN (Reason: anxiety) 7 Days Qty: 21 0RF Referrals: Miscellaneous,Doctor, [Primary Care Provider, Medical] Stand Alone Forms: Patient Portal/API
[2025-04-09 02:42] VITALS: BP 108/73; PULSE 62; RESP 18; TEMP 37; O2SAT 97
--- NOTE | 2025-04-09 02:56 | PC.NURSE ---
Patient came in with her Brother Hong. Concerns about his sisters safety. About 1 week ago pt broke up with her boyfriend, spent days in her room crying, not eating or drinking. She contact mutual friends, and family enough they contacted police/EMT. Evaluation with structural iron worker at her home. Safety plan in place to where she is to be watched constantly for the next 2 weeks, and call in everyday at 10 am. press set up person Maral at [phone]. Today she comes into Emergency Room wanting to be released from her watch (constant supervision). Notified Dr. Mccormick upon arrival to room.
== END 2025-04-09 03:29 | disposition home or self-care (01) ==
PROVIDERS: Emergency Provider Student in an Organized Health Care Education/Training Program
DX: F43.0 Acute stress reaction (principal); F32.A Depression, unspecified; F41.9 Anxiety disorder, unspecified; R45.851 Suicidal ideations
CPT/HCPCS: 99282; 99283

== ENCOUNTER 2025-07-23 11:02 | Emergency (ER) | payer OTHER, SELFPAY ==
[2025-07-23 11:23] VITALS: BP 143/94; PULSE 84; RESP 17; TEMP 37; O2SAT 99; BMI 18.8
--- NOTE | 2025-07-23 11:48 | EKG_ITS ---
[id number] [address] Test Date: 2025-07-23 Pat Name: Norma Crowe Department: Room: Gender: Female Freight Rate Clerk: MARIO : 1985 Requested By: Order Number: [id number] Reading MD: Michael Helton MD Measurements Intervals [place] Rate: 79 P: -14 SC: 154 QRS: 77 QRSD: 68 T: 39 QT: 382 QTc: 438 Interpretive Statements Normal sinus rhythm Electronically Signed On 08-06-2025 8:56:26 PST by Michael Helton MD
--- NOTE | 2025-07-23 11:55 | PC.NURSE ---
Pt presents to ER after having difficulty sleeping the prior night, feeling alone, and becoming overwhelmed/depressed. Pt reports hx of anxiety and depression and that she is prescribed a medication she can't recall the name of. Pt states she does not take this medication because it makes me feel numb. Pt reports having trouble sleeping too much and too little at times and that she sometimes has to use Tylenol PM to sleep. Reports melatonin does not work for her. Pt states she feels this way when she is left alone and when her children are gone from the house (staying with father who is from pt) this occurs more. Pt stated she has a brother here who would be here in a heartbeat but that she does not want to call him because he doesn't know what to do anymore. Pt denies SI at this time but reports hx of vague feelings of SI with no plan. Reports she feels safe at this time.
--- NOTE | 2025-07-23 13:02 | ED.PSYCH ---
HPI - Psych General Chief Complaint: Psychiatric Symptoms Stated Complaint: Emotion and doesn't want to be alone Time Seen by Provider: 07/23/25 11:29 Source: patient Mode of arrival: Ambulatory History of Present Illness HPI Narrative: 40-year-old female with history of anxiety presenting with acutely worsened anxiety and sense of worthlessness. Patient denies any suicidal ideation. She states that this has happened previously. She denies any alcohol or substance use. MD complaint: feels depressed Related Data Allergies Allergy/AdvReac Type Severity Reaction Status Date / Time No Known Drug Allergies (NO Allergy Unknown Verified 07/23/25 11:24 KNOWN DRUG ALLERGIES) Review of Systems Review of Systems ROS Unobtainable: All systems reviewed & are unremarkable except as noted in HPI and below Constitutional Constitutional: Denies fever(s) and Denies malaise Eyes Eyes: Denies diplopia Cardiovascular Cardiovascular: Denies chest pain and Denies dyspnea Respiratory Respiratory: Denies dyspnea Gastrointestinal Gastrointestinal: Denies nausea and Denies vomiting Neurologic Neurologic: Reports system reviewed and no additional complaints, except as documented Psychiatric Psychiatric: Reports depression, Denies homicidal ideation and Denies suicidal ideation Patient History Social History Smoking Status: Never smoker Smoking Status: Never smoker Exam Narrative Exam Narrative: GENERAL: in no distress, not toxic not dyspneic HEAD: Normocephalic. EYES: Pupils equal round ENT: Mucous membranes moist. NECK: Trachea midline. CARDIOVASCULAR: Regular rate and rhythm RESPIRATORY: Clear to auscultation. Breath sounds equal bilaterally. No wheezes, rales, or rhonchi. GASTROINTESTINAL: Abdomen soft, non-tender EXTREMITIES: No gross deformities. BACK: No flank tenderness. NEURO: AOx4. Clear speech SKIN: Warm and dry PSYCH: Tearful, is cooperative, depressed mood, negative for suicidal ideation Initial Vital Signs Initial Vital Signs: Vital Signs Temperature 98.6 F 07/23/25 11:23 Pulse Rate 84 07/23/25 11:23 Respiratory Rate 17 07/23/25 11:23 Blood Pressure 143/94 H 07/23/25 11:23 Pulse Oximetry 99 07/23/25 11:23 Oxygen Delivery Method Room Air 07/23/25 11:23 Const General: cooperative Psych Appearance: grossly normal Affect: dysphoric affect Attitude: cooperative Thought Content: suicidality Course Orders Ordered: ED Orders 07/23/25 11:48 EKG-12 Lead Stat 07/23/25 11:49 Consult to COMMUNITY ARTS OFFICER - Meteorological Observer Stat Discontinued Medications Lorazepam (Lorazepam 0.5 Mg Tablet) 0.5 mg PO NOW ONE Stop: 07/23/25 11:49 Last Admin: 07/23/25 11:52 Dose: 0.5 mg Documented By: EB Vital Signs Vital signs: Vital Signs - 8 hr 07/23/25 11:23 Temperature 98.6 F Pulse Rate 84 Respiratory Rate 17 Blood Pressure 143/94 H Pulse Oximetry 99 Oxygen Delivery Method Room Air MDM - Psych Differential Diagnosis Differential diagnosis: Likely depression, drug-induced psychotic disorder and acute anxiety Medical Records Attestation: I reviewed the patient's medical records. [facility] Narrative Medical decision making narrative: History and exam as above. Patient presenting with symptoms most consistent with adjustment disorder/depression. Persistently denies any suicidal ideation and endorses forward thinking in regards to her children and safety. Suspect likely in the setting of adjustment as patient is without her children over this weekend. She denies any substance use, low suspicion for acute intoxication and no evidence of toxidrome on exam. Plan for medication for symptom management and re-evaluation. Patient provided with social work resources for safety checks. Discharge Plan Departure Patient Disposition: Home Clinical Impression: Acute anxiety Depression Qualifiers: Depression Type: other depression Qualified Code(s): F32.89 - Other specified depressive episodes Instructions: Depression Activity Restrictions/Additional Instructions: You were seen in the emergency department for your anxiety and depression. Evaluation here was overall reassuring and we are glad that you were feeling better at this time. It is important that you follow-up closely with your primary care provider. Our social science manager will also reach out to you tomorrow in order to touch base and check in. If you develop worsening feelings of depression, any thoughts of self-harm or feeling unsafe, severe anxiety or panic, or other concerns, please return to the emergency department for further evaluation. Referrals: Miscellaneous,Doctor, MD [Primary Care Provider, Medical] Stand Alone Forms: Patient Portal/API
--- NOTE | 2025-07-23 16:23 | PC.NURSE ---
Patient was asked prior to discharge by physician and primary RN if patient would be interested follow up from [facility] hotline team tomorrow to check on her and explained that they are a 20/04 line. Patient agreed that she would be open to a call tomorrow from this team. Patient stated that they could call her tomorrow. This RN called and talked to Mann and confirmed patient information for this followup call. Patient confirmed that she has previously had this service in the past. Face sheet for follow up social work consult placed in box. Patient given print out of information stating Crisis Services available for people in [facility]:? tel:[phone].?If you are in a mental health crisis please call the 20/04. Please call if you are in life threatening danger. National Suicide Prevention Lifeline 20/04, dial or text?330
--- NOTE | 2025-07-24 11:51 | CM.SWNOTE ---
ED CARDIOVASCULAR OR NURSE Follow Up Note: Pt is a 40yo female, resident of [place], is seen in the ED for strong emotions, vauge SI. Pt's Primary Care Provider is unknown/unlisted and insurance is [facility] and [facility] [employer]. Reviewed chart and discussed with multidisciplinary team pt's medical status and initial discharge needs. CARDIOVASCULAR OR NURSE consulted for outpatient MH plan as pt was able to contract for safety in the ED on 07/23/25 and ED RN graciously completed referral to [facility] follow up. CARDIOVASCULAR OR NURSE left a voice message on pt's voice mailbox only with call back to CARDIOVASCULAR OR NURSE with direct phone number. Plan: Pt discharged home from the ED yesterday, had a scheduled follow up with [facility]. ED CARDIOVASCULAR OR NURSE available for outpatient referrals if necessary. QUENTIN [employer]
== END 2025-07-23 16:03 | disposition home or self-care (01) ==
PROVIDERS: Emergency Provider Student in an Organized Health Care Education/Training Program
DX: F41.9 Anxiety disorder, unspecified (principal)
CPT/HCPCS: 93005; 99283